=== PATIENT | female | born 1950 | race Caucasian/White ===

== ENCOUNTER 2020-08-27 11:24 | Inpatient (IN) ==
[2020-08-27] MEDS ORDERED: 0.9 % Sodium Chloride 1,000 ML IVC ONE (11:34)
[2020-08-27 12:10] LABS: Basophils % 0.2 %; Eosinophils % 0.1 %; Hematocrit 26.6 % (35.3-44.9); Hemoglobin 7.3 g/dL (11.5-15.4); Immature Granulocytes % 0.5 % (0-4); Lymphocytes # 0.4 K/mcL (0.6-4.6); Lymphocytes % 4.2 %; Mean Corpuscular HGB Conc 27.4 g/dL (31.6-35.5); Mean Corpuscular Hemoglobin 25.7 pg (28.0-33.3); Mean Corpuscular Volume 93.7 fL (83.0-100.0); Mean Platelet Volume 12.2 fL (9.4-12.4); Monocytes # 0.5 K/mcL (0.0-1.3); Monocytes % 4.8 %; Platelet Count 129 K/mcL (140-400); Red Blood Count 2.84 M/mcL (3.82-4.97); Red Cell Distribution Width 21.9 % (11.5-14.5); Segmented Neutrophils % 90.2 %; White Blood Count 9.7 K/mcL (4.3-11.1)
[2020-08-27 12:11] LABS: Neutrophils # 8.8 K/mcL (1.6-8.9)
[2020-08-27 12:12] LABS: Anisocytosis 1+ (Not Present); Hypochromasia Present (Not Present); Platelet Estimate Slight Decrease (Normal)
[2020-08-27 12:35] LABS: Calcium 8.8 mg/dL (8.6-10.3); Potassium 3.3 mEq/L (3.5-5.1); Troponin I 0.03 ng/mL (< 0.04)
[2020-08-27 12:48] LABS: Thyroid Stimulating Hormone 2.893 mcIU/mL (0.340-5.600)
[2020-08-27 12:49] LABS: Bacteria,Urine Few per hpf (None-Few); Bilirubin,Urine Negative (Negative); Blood,Urine Moderate (Negative); Clarity,Urine Clear (Clear); Color,Urine Yellow (Yellow); Glucose,Urine (UA) Normal (Normal); Hyaline Casts,Urine Few per lpf (None Seen); Ketones,Urine Negative (Negative); Leukocyte Esterase,Urine Moderate (Negative); Mucus,Urine Few per lpf (None-Few); Nitrite,Urine Negative (Negative); PH,Urine 5.5 pH Units (5.0-8.0); Protein,Urine 30 mg/dL (Neg-Trace); Specific Gravity,Urine 1.015 (1.010-1.025); Squamous Epithelial Cell,Urine Few per hpf (None-Few); Urobilinogen,Urine Normal (Normal); WBC,Urine 15-30 per hpf (0-3)
[2020-08-27] MEDS ORDERED: *HR* Metoprolol 5 MG/5 ML VIAL IVP ONE (13:01)
[2020-08-27] MEDS ORDERED: Furosemide 20 MG/2 ML VIAL IVP ONE ×2 (13:14→15:18)
[2020-08-27] MEDS ORDERED: Dextrose Gel 15 GM/37.5 ML TUBE PO PRN ×2 (14:53)
[2020-08-27] MEDS ORDERED: D5% in Water 1,000 ML IVC PRN (14:53)
[2020-08-27] MEDS ORDERED: *HR* Dextrose 50 % in Water (Vial) 50 ML VIAL IVP PRN (14:53)
[2020-08-27] MEDS ORDERED: Ondansetron 4 MG/2 ML VIAL IVP PRN (15:24)
[2020-08-27] MEDS ORDERED: Melatonin 3 MG TABLET PO PRN (15:24)
[2020-08-27] MEDS ORDERED: 0.9 % Sodium Chloride 250 ML ONE (15:45)
[2020-08-27] MEDS ORDERED: Furosemide 20 MG/2 ML VIAL IVP SCH (17:00)
[2020-08-27] MEDS: Budesonide/Formoterol 160/4.5 1 PUFF INH IH SCH (19:58)
[2020-08-27] MEDS: Apixaban 5 MG TABLET PO SCH (21:05)
[2020-08-27] MEDS: Gabapentin 100 MG CAPSULE PO SCH (21:05)
[2020-08-27] MEDS: Nystatin POWDER 30 GM BOTTLE TP SCH (21:06)
[2020-08-27] MEDS: Insulin DETEMIR 100 UNIT/ML X5UNITS SUBQ SCH (21:06)
[2020-08-27] MEDS: Furosemide 20 MG/2 ML VIAL IVP SCH (21:10)
[2020-08-27] MEDS ORDERED: *HR* LORazepam 0.5 MG TABLET PO ONE (23:54)
[2020-08-28] MEDS: Acetaminophen 325 MG TABLET PO PRN (00:06)
[2020-08-28 02:30] LABS: Red Cell Distribution Width 21.2 % (11.5-14.5)
[2020-08-28 02:31] LABS: Hematocrit 24.7 % (35.3-44.9); Mean Corpuscular HGB Conc 28.3 g/dL (31.6-35.5); Mean Corpuscular Hemoglobin 25.5 pg (28.0-33.3); Mean Corpuscular Volume 90.1 fL (83.0-100.0); Mean Platelet Volume 11.9 fL (9.4-12.4); Platelet Count 119 K/mcL (140-400); Red Blood Count 2.74 M/mcL (3.82-4.97)
[2020-08-28 02:58] LABS: Magnesium 1.9 mg/dL (1.6-2.6); Potassium 3.1 mEq/L (3.5-5.1)
[2020-08-28] MEDS ORDERED: Ferumoxytol 510 MG in 0.9 % Sodium Chloride 100 ML IVPB ONE (06:00)
[2020-08-28] MEDS: Budesonide/Formoterol 160/4.5 1 PUFF INH IH SCH ×2 (08:03→20:19)
[2020-08-28] MEDS ORDERED: 0.9 % Sodium Chloride 250 ML ONE (09:02)
[2020-08-28] MEDS: Furosemide 20 MG/2 ML VIAL IVP SCH ×2 (09:28→17:22)
[2020-08-28] MEDS: Gabapentin 100 MG CAPSULE PO SCH ×2 (09:28→20:50)
[2020-08-28] MEDS: Apixaban 5 MG TABLET PO SCH ×2 (09:28→20:50)
[2020-08-28 11:00] LABS: Acinetobacter baumannii by PCR Not Detected (Not Detect); Candida albicans by PCR Not Detected (Not Detect); Candida glabrata by PCR Not Detected (Not Detect); Candida krusei by PCR Not Detected (Not Detect); Candida parapsilosis by PCR Not Detected (Not Detect); Candida tropicalis by PCR Not Detected (Not Detect); Enterobacter cloacae Cmplx PCR Not Detected (Not Detect); Enterobacteriaceae by PCR Not Detected (Not Detect); Enterococcus by PCR Not Detected (Not Detect); Escherichia coli by PCR Not Detected (Not Detect); Klebsiella oxytoca by PCR Not Detected (Not Detect); Klebsiella pneumoniae by PCR Not Detected (Not Detect); Proteus by PCR Not Detected (Not Detect); Pseudomonas aeruginosa by PCR Not Detected (Not Detect); Serratia marcescens by PCR Not Detected (Not Detect); Staphylococcus aureus by PCR Not Detected (Not Detect); Staphylococcus by PCR Not Detected (Not Detect); Streptococcus agalactiae(B)PCR Not Detected (Not Detect); Streptococcus by PCR DETECTED (Not Detect); Streptococcus pneumoniae PCR Not Detected (Not Detect); Streptococcus pyogenes (A) PCR Not Detected (Not Detect)
[2020-08-28] MEDS ORDERED: Cyanocobalamin (B-12) 1,000 MCG/ML VIAL SQ ONE (11:22)
[2020-08-28] MEDS: Potassium Chloride Elixir 20 MEQ/15 ML UDC PO SCH ×2 (13:29→17:21)
[2020-08-28] MEDS: Nystatin POWDER 30 GM BOTTLE TP SCH ×2 (13:30→20:51)
[2020-08-28 15:33] LABS: Folate 20.8 ng/mL (3.0-16.0); Vitamin B12 > 1500 pg/mL (250-1100)
[2020-08-28 18:15] LABS: Hematocrit 32.5 % (35.3-44.9)
[2020-08-28 18:19] LABS: Hemoglobin 9.2 g/dL (11.5-15.4)
[2020-08-28] MEDS: Insulin DETEMIR 100 UNIT/ML X5UNITS SUBQ SCH (20:50)
[2020-08-29 05:42] LABS: Calcium 8.2 mg/dL (8.6-10.3); Potassium 3.5 mEq/L (3.5-5.1)
[2020-08-29 05:47] LABS: Basophils % 0.2 %; Eosinophils # 0.1 K/mcL (0.0-0.6); Hematocrit 28.6 % (35.3-44.9); Immature Granulocytes % 0.5 % (0-4); Immature Platelets 7.1 % (1.1-6.1); Lymphocytes # 0.6 K/mcL (0.6-4.6); Lymphocytes % 5.9 %; Mean Corpuscular Hemoglobin 25.6 pg (28.0-33.3); Mean Corpuscular Volume 91.4 fL (83.0-100.0); Mean Platelet Volume 12.4 fL (9.4-12.4); Monocytes # 0.6 K/mcL (0.0-1.3); Monocytes % 6.2 %; Neutrophils # 8.1 K/mcL (1.6-8.9); Platelet Count 114 K/mcL (140-400); Red Blood Count 3.13 M/mcL (3.82-4.97); Red Cell Distribution Width 20.4 % (11.5-14.5); Segmented Neutrophils % 86.2 %; White Blood Count 9.4 K/mcL (4.3-11.1)
[2020-08-29 05:55] LABS: Anisocytosis 1+ (Not Present); Hypochromasia Present (Not Present); Platelet Estimate Slight Decrease (Normal)
[2020-08-29] MEDS: Budesonide/Formoterol 160/4.5 1 PUFF INH IH SCH ×2 (07:51→20:28)
[2020-08-29] MEDS: Furosemide 20 MG/2 ML VIAL IVP SCH (08:41)
[2020-08-29] MEDS: Apixaban 5 MG TABLET PO SCH ×2 (08:42→20:58)
[2020-08-29] MEDS: Gabapentin 100 MG CAPSULE PO SCH ×2 (08:42→20:58)
[2020-08-29] MEDS: Nystatin POWDER 30 GM BOTTLE TP SCH ×2 (08:42→22:04)
[2020-08-29] MEDS: Piperacillin/Tazobactam 3.375 GM in 0.9 % Sodium Chloride Mini Bag 100 ML IVPB SCH (16:40)
[2020-08-29] MEDS: Acetaminophen 325 MG TABLET PO PRN (20:58)
[2020-08-29] MEDS: Insulin DETEMIR 100 UNIT/ML X5UNITS SUBQ SCH (20:59)
[2020-08-30] MEDS: Piperacillin/Tazobactam 3.375 GM in 0.9 % Sodium Chloride Mini Bag 100 ML IVPB SCH ×4 (00:10→23:04)
[2020-08-30] MEDS: Acetaminophen 325 MG TABLET PO PRN ×2 (03:52→23:03)
[2020-08-30] MEDS: Vancomycin 2,000 MG/520 ML IV.SOLN IVPB SCH (05:34)
[2020-08-30 06:47] LABS: Eosinophils % 1.2 %
[2020-08-30 06:49] LABS: Basophils % 0.3 %; Eosinophils # 0.1 K/mcL (0.0-0.6); Hematocrit 29.7 % (35.3-44.9); Hemoglobin 8.5 g/dL (11.5-15.4); Immature Granulocytes % 0.5 % (0-4); Lymphocytes # 0.4 K/mcL (0.6-4.6); Mean Corpuscular HGB Conc 28.6 g/dL (31.6-35.5); Mean Corpuscular Hemoglobin 25.8 pg (28.0-33.3); Mean Platelet Volume 12.1 fL (9.4-12.4); Monocytes # 0.4 K/mcL (0.0-1.3); Monocytes % 3.5 %; Platelet Count 120 K/mcL (140-400); Red Cell Distribution Width 20.1 % (11.5-14.5); Segmented Neutrophils % 91.5 %; White Blood Count 11.5 K/mcL (4.3-11.1)
[2020-08-30 06:50] LABS: Neutrophils # 10.5 K/mcL (1.6-8.9)
[2020-08-30 07:08] LABS: Calcium 8.3 mg/dL (8.6-10.3); Potassium 3.4 mEq/L (3.5-5.1)
[2020-08-30 07:36] LABS: Platelet Estimate Slight Decrease (Normal)
[2020-08-30] MEDS ORDERED: Potassium Chloride Elixir 20 MEQ/15 ML UDC PO ONE (07:46)
[2020-08-30] MEDS: Gabapentin 100 MG CAPSULE PO SCH ×2 (08:33→19:55)
[2020-08-30] MEDS: Apixaban 5 MG TABLET PO SCH ×2 (08:33→19:55)
[2020-08-30] MEDS: Nystatin POWDER 30 GM BOTTLE TP SCH ×2 (08:35→19:56)
[2020-08-30] MEDS ORDERED: Furosemide 20 MG/2 ML VIAL IVP SCH (09:00)
[2020-08-30] MEDS: Budesonide/Formoterol 160/4.5 1 PUFF INH IH SCH ×2 (12:29→20:20)
[2020-08-30 12:52] LABS: Adenovirus Not Detected (Not Detect); Bordetella Pertussis Not Detected (Not Detect); Chlamydophila pneumoniae Not Detected (Not Detect); Coronavirus 229E Not Detected (Not Detect); Coronavirus HKU1 Not Detected (Not Detect); Coronavirus NL63 Not Detected (Not Detect); Coronavirus OC43 Not Detected (Not Detect); Human Metapneumovirus Not Detected (Not Detect); Human Rhinovirus/Enterovirus Not Detected (Not Detect); Influenza A Subtype 2009 H1 Not Detected (Not Detect); Influenza B Not Detected (Not Detect); Mycoplasma pneumoniae Not Detected (Not Detect); Parainfluenza Virus 1 Not Detected (Not Detect); Parainfluenza Virus 2 Not Detected (Not Detect); Parainfluenza Virus 3 Not Detected (Not Detect); Parainfluenza Virus 4 Not Detected (Not Detect); Respiratory Syncytial Virus Not Detected (Not Detect); SARS-CoV-2 Not Detected (Not Detect)
[2020-08-30] MEDS: Cyanocobalamin (B-12) 1,000 MCG TABLET PO SCH (15:17)
[2020-08-30] MEDS: Insulin DETEMIR 100 UNIT/ML X5UNITS SUBQ SCH (20:08)
[2020-08-31 04:12] LABS: Immature Granulocytes % 0.7 % (0-4); Lymphocytes % 5.7 %; Red Blood Count 3.27 M/mcL (3.82-4.97); Red Cell Distribution Width 20.1 % (11.5-14.5)
[2020-08-31 04:13] LABS: Basophils % 0.4 %; Eosinophils # 0.4 K/mcL (0.0-0.6); Eosinophils % 4.1 %; Hematocrit 30.5 % (35.3-44.9); Hemoglobin 8.5 g/dL (11.5-15.4); Lymphocytes # 0.5 K/mcL (0.6-4.6); Mean Corpuscular HGB Conc 27.9 g/dL (31.6-35.5); Mean Corpuscular Volume 93.3 fL (83.0-100.0); Mean Platelet Volume 11.6 fL (9.4-12.4); Monocytes # 0.4 K/mcL (0.0-1.3); Monocytes % 4.9 %; Neutrophils # 7.2 K/mcL (1.6-8.9); Platelet Count 107 K/mcL (140-400); Segmented Neutrophils % 84.2 %; White Blood Count 8.6 K/mcL (4.3-11.1)
[2020-08-31 04:31] LABS: Calcium 8.2 mg/dL (8.6-10.3); Potassium 3.2 mEq/L (3.5-5.1)
[2020-08-31 04:41] LABS: Anisocytosis 1+ (Not Present); Hypochromasia Present (Not Present); Platelet Estimate Slight Decrease (Normal)
[2020-08-31] MEDS: Vancomycin 2,000 MG/520 ML IV.SOLN IVPB SCH (05:04)
[2020-08-31] MEDS: Budesonide/Formoterol 160/4.5 1 PUFF INH IH SCH ×2 (08:11→22:17)
[2020-08-31] MEDS: Piperacillin/Tazobactam 3.375 GM in 0.9 % Sodium Chloride Mini Bag 100 ML IVPB SCH ×3 (08:48→23:51)
[2020-08-31] MEDS: Cyanocobalamin (B-12) 1,000 MCG TABLET PO SCH (08:49)
[2020-08-31] MEDS: Gabapentin 100 MG CAPSULE PO SCH ×2 (08:49→20:57)
[2020-08-31] MEDS: Apixaban 5 MG TABLET PO SCH ×2 (08:49→20:57)
[2020-08-31] MEDS: Furosemide 20 MG/2 ML VIAL IVP SCH ×2 (08:50→17:20)
[2020-08-31] MEDS: Nystatin POWDER 30 GM BOTTLE TP SCH ×2 (08:51→20:59)
[2020-08-31] MEDS: Insulin DETEMIR 100 UNIT/ML X5UNITS SUBQ SCH (20:59)
[2020-09-01] MEDS: Acetaminophen 325 MG TABLET PO PRN ×2 (00:20→19:59)
[2020-09-01 04:42] LABS: Basophils % 0.3 %
[2020-09-01 04:43] LABS: Eosinophils # 0.5 K/mcL (0.0-0.6); Eosinophils % 5.1 %; Hematocrit 30.6 % (35.3-44.9); Hemoglobin 8.4 g/dL (11.5-15.4); Immature Granulocytes % 1.1 % (0-4); Lymphocytes # 0.6 K/mcL (0.6-4.6); Lymphocytes % 5.9 %; Mean Corpuscular HGB Conc 27.5 g/dL (31.6-35.5); Mean Corpuscular Hemoglobin 25.5 pg (28.0-33.3); Mean Platelet Volume 11.9 fL (9.4-12.4); Monocytes # 0.5 K/mcL (0.0-1.3); Monocytes % 5.1 %; Platelet Count 114 K/mcL (140-400); Red Blood Count 3.29 M/mcL (3.82-4.97); Segmented Neutrophils % 82.5 %; White Blood Count 9.5 K/mcL (4.3-11.1)
[2020-09-01 04:53] LABS: Potassium 3.9 mEq/L (3.5-5.1)
[2020-09-01 04:56] LABS: Neutrophils # 7.8 K/mcL (1.6-8.9)
[2020-09-01 05:09] LABS: Hypochromasia Present (Not Present); Macrocytosis Present (Not Present); Platelet Estimate Slight Decrease (Normal)
[2020-09-01] MEDS: Vancomycin 2,000 MG/520 ML IV.SOLN IVPB SCH (05:35)
[2020-09-01] MEDS: Budesonide/Formoterol 160/4.5 1 PUFF INH IH SCH ×2 (07:53→20:14)
[2020-09-01] MEDS: Furosemide 20 MG/2 ML VIAL IVP SCH ×2 (08:45→16:20)
[2020-09-01] MEDS: Gabapentin 100 MG CAPSULE PO SCH ×2 (08:45→19:59)
[2020-09-01] MEDS: Apixaban 5 MG TABLET PO SCH ×2 (08:45→19:59)
[2020-09-01] MEDS: Cyanocobalamin (B-12) 1,000 MCG TABLET PO SCH (08:45)
[2020-09-01] MEDS: Piperacillin/Tazobactam 3.375 GM in 0.9 % Sodium Chloride Mini Bag 100 ML IVPB SCH (08:46)
[2020-09-01] MEDS: Nystatin POWDER 30 GM BOTTLE TP SCH ×2 (08:46→20:02)
[2020-09-01] MEDS: cefTRIAXone 2,000 MG in 0.9 % Sodium Chloride Mini Bag 100 ML IVPB SCH (16:20)
[2020-09-01] MEDS: Insulin DETEMIR 100 UNIT/ML X5UNITS SUBQ SCH (20:00)
[2020-09-02 03:29] LABS: Basophils % 0.5 %; Immature Granulocytes % 0.8 % (0-4)
[2020-09-02 03:30] LABS: Eosinophils # 0.4 K/mcL (0.0-0.6); Eosinophils % 5.5 %; Hematocrit 31.6 % (35.3-44.9); Hemoglobin 8.7 g/dL (11.5-15.4); Lymphocytes # 0.6 K/mcL (0.6-4.6); Lymphocytes % 7.4 %; Mean Corpuscular HGB Conc 27.5 g/dL (31.6-35.5); Mean Corpuscular Volume 94.3 fL (83.0-100.0); Mean Platelet Volume 11.7 fL (9.4-12.4); Monocytes # 0.5 K/mcL (0.0-1.3); Monocytes % 5.9 %; Platelet Count 125 K/mcL (140-400); Red Blood Count 3.35 M/mcL (3.82-4.97); Red Cell Distribution Width 20.3 % (11.5-14.5); Segmented Neutrophils % 79.9 %; White Blood Count 7.8 K/mcL (4.3-11.1)
[2020-09-02 03:35] LABS: Neutrophils # 6.2 K/mcL (1.6-8.9)
[2020-09-02 03:42] LABS: Calcium 8.1 mg/dL (8.6-10.3); Potassium 3.8 mEq/L (3.5-5.1)
[2020-09-02 04:10] LABS: Anisocytosis 1+ (Not Present); Hypochromasia Present (Not Present); Platelet Estimate Slight Decrease (Normal)
[2020-09-02] MEDS: Budesonide/Formoterol 160/4.5 1 PUFF INH IH SCH ×2 (07:48→19:45)
[2020-09-02] MEDS: Gabapentin 100 MG CAPSULE PO SCH ×2 (10:02→19:55)
[2020-09-02] MEDS: Furosemide 20 MG/2 ML VIAL IVP SCH ×2 (10:02→16:36)
[2020-09-02] MEDS: Apixaban 5 MG TABLET PO SCH ×2 (10:02→19:54)
[2020-09-02] MEDS: Cyanocobalamin (B-12) 1,000 MCG TABLET PO SCH (10:02)
[2020-09-02] MEDS: Nystatin POWDER 30 GM BOTTLE TP SCH ×2 (10:03→19:55)
[2020-09-02] MEDS: cefTRIAXone 2,000 MG in 0.9 % Sodium Chloride Mini Bag 100 ML IVPB SCH (16:36)
[2020-09-02] MEDS: Insulin DETEMIR 100 UNIT/ML X5UNITS SUBQ SCH (19:55)
[2020-09-03 02:47] LABS: Basophils % 0.4 %; Red Blood Count 3.33 M/mcL (3.82-4.97)
[2020-09-03 02:48] LABS: Eosinophils # 0.5 K/mcL (0.0-0.6); Eosinophils % 6.5 %; Hematocrit 31.2 % (35.3-44.9); Hemoglobin 8.7 g/dL (11.5-15.4); Immature Granulocytes % 0.9 % (0-4); Lymphocytes # 0.5 K/mcL (0.6-4.6); Lymphocytes % 7.6 %; Mean Corpuscular HGB Conc 27.9 g/dL (31.6-35.5); Mean Corpuscular Hemoglobin 26.1 pg (28.0-33.3); Mean Corpuscular Volume 93.7 fL (83.0-100.0); Mean Platelet Volume 12.6 fL (9.4-12.4); Monocytes # 0.4 K/mcL (0.0-1.3); Monocytes % 5.6 %; Neutrophils # 5.5 K/mcL (1.6-8.9); Platelet Count 153 K/mcL (140-400); Red Cell Distribution Width 19.9 % (11.5-14.5)
[2020-09-03 03:05] LABS: Calcium 8.4 mg/dL (8.6-10.3); Potassium 3.7 mEq/L (3.5-5.1)
[2020-09-03 04:20] LABS: Hypochromasia Present (Not Present); Platelet Estimate Normal (Normal)
[2020-09-03] MEDS: Budesonide/Formoterol 160/4.5 1 PUFF INH IH SCH ×2 (07:33→22:08)
[2020-09-03] MEDS: Furosemide 20 MG/2 ML VIAL IVP SCH ×2 (08:09→16:06)
[2020-09-03] MEDS: Apixaban 5 MG TABLET PO SCH ×2 (08:10→19:49)
[2020-09-03] MEDS: Nystatin POWDER 30 GM BOTTLE TP SCH ×2 (08:10→22:45)
[2020-09-03] MEDS: Cyanocobalamin (B-12) 1,000 MCG TABLET PO SCH (08:10)
[2020-09-03] MEDS: Gabapentin 100 MG CAPSULE PO SCH ×2 (08:10→19:49)
[2020-09-03 15:14] LABS: ABG Base Excess 2 mEq/L (-2 to 3); ABG HCO3 28 mEq/L (21-27); ABG Oxygen Saturation 87 % (95-98); ABG PCO2 46 mmHg (35-45); ABG PH 7.39 pH Units (7.32-7.45); ABG PO2 53 mmHg (85-104); ABG TCO2 29 mEq/L (20-26)
[2020-09-03] MEDS: cefTRIAXone 2,000 MG in 0.9 % Sodium Chloride Mini Bag 100 ML IVPB SCH (16:04)
[2020-09-03] MEDS: Insulin DETEMIR 100 UNIT/ML X5UNITS SUBQ SCH (19:50)
[2020-09-04 06:33] LABS: Immature Granulocytes % 1.2 % (0-4); Red Blood Count 3.26 M/mcL (3.82-4.97); Segmented Neutrophils % 77.6 %
[2020-09-04 06:35] LABS: Basophils % 0.6 %; Eosinophils # 0.4 K/mcL (0.0-0.6); Eosinophils % 5.8 %; Hematocrit 30.9 % (35.3-44.9); Hemoglobin 8.5 g/dL (11.5-15.4); Lymphocytes # 0.6 K/mcL (0.6-4.6); Lymphocytes % 8.4 %; Mean Corpuscular HGB Conc 27.5 g/dL (31.6-35.5); Mean Corpuscular Hemoglobin 26.1 pg (28.0-33.3); Mean Corpuscular Volume 94.8 fL (83.0-100.0); Mean Platelet Volume 12.6 fL (9.4-12.4); Monocytes # 0.4 K/mcL (0.0-1.3); Monocytes % 6.4 %; Neutrophils # 5.1 K/mcL (1.6-8.9); Platelet Count 156 K/mcL (140-400); Red Cell Distribution Width 20.2 % (11.5-14.5); White Blood Count 6.6 K/mcL (4.3-11.1)
[2020-09-04 07:01] LABS: Hypochromasia Present (Not Present)
[2020-09-04 07:02] LABS: Anisocytosis 1+ (Not Present); Platelet Estimate Normal (Normal)
[2020-09-04] MEDS: Budesonide/Formoterol 160/4.5 1 PUFF INH IH SCH (07:29)
[2020-09-04 07:55] LABS: BUN/Creatinine Ratio 23 (6-26); Blood Urea Nitrogen 25 mg/dL (8-23); Calcium 8.7 mg/dL (8.6-10.3); Carbon Dioxide 25 mEq/L (23-29); Chloride 108 mEq/L (98-107); Glucose 116 mg/dL (70-105); Osmolality,Calculated 297 (280-300); Potassium 4.1 mEq/L (3.5-5.1); Sodium 141 mEq/L (136-145); eGFR For African Americans > 60 (> 60); eGFR For Non-African Americans 51 (> 60)
[2020-09-04] MEDS: Apixaban 5 MG TABLET PO SCH (09:22)
[2020-09-04] MEDS: Cyanocobalamin (B-12) 1,000 MCG TABLET PO SCH (09:22)
[2020-09-04] MEDS: Gabapentin 100 MG CAPSULE PO SCH (09:23)
[2020-09-04] MEDS: Furosemide 20 MG/2 ML VIAL IVP SCH (09:23)
[2020-09-04] MEDS: Nystatin POWDER 30 GM BOTTLE TP SCH (09:23)
[2020-09-04 12:20] VITALS: BP 113/61
== END 2020-09-04 17:40 | disposition home health service (06) | DRG 291 ==
LOC: 2ANU 11:24 → EMEROOARM 11:24 → 2ANU 14:21 → SUATTDRO 15:29
PROVIDERS: ADMIT Internal Medicine; ATTEND Student in an Organized Health Care Education/Training Program

== ENCOUNTER 2020-10-20 09:22 | Inpatient (IN) ==
[2020-10-20 10:18] LABS: Basophils % 0.1 %; Segmented Neutrophils % 91.8 %
[2020-10-20 10:20] LABS: Eosinophils % 0.1 %; Hematocrit 21.4 % (35.3-44.9); Immature Granulocytes % 0.5 % (0-4); Lymphocytes # 0.5 K/mcL (0.6-4.6); Lymphocytes % 4.1 %; Mean Corpuscular Hemoglobin 25.8 pg (28.0-33.3); Mean Corpuscular Volume 91.8 fL (83.0-100.0); Mean Platelet Volume 12.7 fL (9.4-12.4); Monocytes # 0.5 K/mcL (0.0-1.3); Monocytes % 3.4 %; Platelet Count 127 K/mcL (140-400); Red Blood Count 2.33 M/mcL (3.82-4.97); Red Cell Distribution Width 19.5 % (11.5-14.5); White Blood Count 13.1 K/mcL (4.3-11.1)
[2020-10-20 10:40] LABS: Albumin 2.9 g/dL (3.5-5.7); Albumin/Globulin Ratio 0.7 (1.1-2.2); Bilirubin,Total 1.2 mg/dL (0.3-1.0); Calcium 8.4 mg/dL (8.6-10.3); Potassium 3.8 mEq/L (3.5-5.1); Total Protein 6.9 g/dL (6.4-8.9); Troponin I 0.17 ng/mL (< 0.04)
[2020-10-20 10:41] LABS: Hypochromasia Present (Not Present)
[2020-10-20 11:42] LABS: Bacteria,Urine Few per hpf (None-Few); Bilirubin,Urine Negative (Negative); Blood,Urine Large (Negative); Clarity,Urine Turbid (Clear); Color,Urine Yellow (Yellow); Glucose,Urine (UA) Normal (Normal); Hyaline Casts,Urine Many per lpf (None Seen); Ketones,Urine Negative (Negative); Leukocyte Esterase,Urine Large (Negative); Mucus,Urine Few per lpf (None-Few); Nitrite,Urine Negative (Negative); Protein,Urine Trace mg/dL (Neg-Trace); RBC,Urine 15-30 per hpf (0-3); Specific Gravity,Urine 1.017 (1.010-1.025); Squamous Epithelial Cell,Urine Few per hpf (None-Few); WBC,Urine TNTC per hpf (0-3)
[2020-10-20 11:45] LABS: Amphetamine Screen,Urine Negative ng/mL (Cutoff=1000); Barbiturate Screen,Urine Negative ng/mL (Cutoff=200); Benzodiazepines Screen,Urine Negative ng/mL (Cutoff=200); Cannabinoid Screen,Urine Negative ng/mL (Cutoff = 50); Cocaine Screen,Urine Negative ng/mL (Cutoff= 300); Opiate Screen,Urine Negative ng/mL (Cutoff=300); Phencyclidine Screen,Urine Negative ng/mL (Cutoff=25)
[2020-10-20] MEDS ORDERED: cefTRIAXone 1,000 MG in Water for inj. (sterile) 10 ML IVP ONE (12:13)
[2020-10-20] MEDS ORDERED: 0.9 % Sodium Chloride 1,000 ML IVC STA (12:14)
[2020-10-20] MEDS ORDERED: Pantoprazole 40 MG VIAL IVP ONE (12:25)
[2020-10-20] MEDS ORDERED: 0.9 % Sodium Chloride 250 ML ONE ×2 (12:30→16:01)
[2020-10-20] MEDS ORDERED: D5% in Water 1,000 ML IVC PRN (13:21)
[2020-10-20] MEDS ORDERED: *HR* Dextrose 50 % in Water (Vial) 50 ML VIAL IVP PRN (13:21)
[2020-10-20] MEDS ORDERED: Naloxone 0.4 MG/ML INJ IVP PRN (13:21)
[2020-10-20] MEDS ORDERED: Dextrose Gel 15 GM/37.5 ML TUBE PO PRN ×2 (13:21)
[2020-10-20] MEDS ORDERED: Ondansetron 4 MG/2 ML VIAL IVP PRN (13:21)
[2020-10-20 16:02] LABS: ABG Base Excess 1 mEq/L (-2 to 3); ABG HCO3 26 mEq/L (21-27); ABG Oxygen Saturation 96 % (95-98); ABG PCO2 43 mmHg (35-45); ABG PH 7.39 pH Units (7.32-7.45); ABG PO2 84 mmHg (85-104); ABG TCO2 27 mEq/L (20-26)
[2020-10-20] MEDS: Insulin LISPRO 300 UNITS/3 ML VIAL SUBQ SCH (16:34)
[2020-10-20] MEDS: Pantoprazole 40 MG VIAL IVP SCH (16:34)
[2020-10-20 18:37] LABS: Hematocrit 24.2 % (35.3-44.9); Hemoglobin 7.1 g/dL (11.5-15.4)
[2020-10-20] MEDS: Insulin DETEMIR 100 UNIT/ML X5UNITS SUBQ SCH (19:54)
[2020-10-20 22:58] LABS: Acinetobacter baumannii by PCR Not Detected (Not Detect); Candida albicans by PCR Not Detected (Not Detect); Candida glabrata by PCR Not Detected (Not Detect); Candida krusei by PCR Not Detected (Not Detect); Candida parapsilosis by PCR Not Detected (Not Detect); Candida tropicalis by PCR Not Detected (Not Detect); Enterobacter cloacae Cmplx PCR Not Detected (Not Detect); Enterobacteriaceae by PCR Not Detected (Not Detect); Enterococcus by PCR Not Detected (Not Detect); Escherichia coli by PCR Not Detected (Not Detect); Klebsiella oxytoca by PCR Not Detected (Not Detect); Klebsiella pneumoniae by PCR Not Detected (Not Detect); Proteus by PCR Not Detected (Not Detect); Pseudomonas aeruginosa by PCR Not Detected (Not Detect); Serratia marcescens by PCR Not Detected (Not Detect); Staphylococcus aureus by PCR Not Detected (Not Detect); Staphylococcus by PCR Not Detected (Not Detect); Streptococcus agalactiae(B)PCR Not Detected (Not Detect); Streptococcus by PCR Not Detected (Not Detect); Streptococcus pneumoniae PCR Not Detected (Not Detect); Streptococcus pyogenes (A) PCR Not Detected (Not Detect)
[2020-10-21 00:59] LABS: Basophils % 0.2 %; Eosinophils # 0.1 K/mcL (0.0-0.6); Eosinophils % 0.6 %; Hematocrit 23.8 % (35.3-44.9); Immature Granulocytes % 0.6 % (0-4); Lymphocytes # 0.5 K/mcL (0.6-4.6); Lymphocytes % 3.8 %; Mean Corpuscular HGB Conc 29.4 g/dL (31.6-35.5); Mean Corpuscular Hemoglobin 26.6 pg (28.0-33.3); Mean Corpuscular Volume 90.5 fL (83.0-100.0); Mean Platelet Volume 11.8 fL (9.4-12.4); Monocytes # 0.6 K/mcL (0.0-1.3); Monocytes % 4.6 %; Neutrophils # 12.4 K/mcL (1.6-8.9); Platelet Count 128 K/mcL (140-400); Red Blood Count 2.63 M/mcL (3.82-4.97); Red Cell Distribution Width 18.3 % (11.5-14.5); Segmented Neutrophils % 90.2 %; White Blood Count 13.8 K/mcL (4.3-11.1)
[2020-10-21 01:20] LABS: Calcium 8.4 mg/dL (8.6-10.3); Potassium 3.5 mEq/L (3.5-5.1)
[2020-10-21 01:29] LABS: Troponin I 0.22 ng/mL (< 0.04)
[2020-10-21] MEDS: Pantoprazole 40 MG VIAL IVP SCH ×2 (05:09→18:09)
[2020-10-21] MEDS: Insulin LISPRO 300 UNITS/3 ML VIAL SUBQ SCH ×3 (07:29→18:10)
[2020-10-21] MEDS ORDERED: 0.9 % Sodium Chloride 250 ML ONE (08:53)
[2020-10-21] MEDS ORDERED: cefTRIAXone 1,000 MG in Water for inj. (sterile) 10 ML IVP SCH (09:00)
[2020-10-21] MEDS: Acetaminophen 325 MG TABLET PO PRN (09:30)
[2020-10-21] MEDS ORDERED: cefTRIAXone 1,000 MG in Water for inj. (sterile) 10 ML IVP ONE (11:42)
[2020-10-21 13:10] LABS: Hemoglobin 7.5 g/dL (11.5-15.4)
[2020-10-21] MEDS: Insulin DETEMIR 100 UNIT/ML X5UNITS SUBQ SCH (20:25)
[2020-10-22 02:14] LABS: Hematocrit 26.2 % (35.3-44.9); Hemoglobin 7.6 g/dL (11.5-15.4); Mean Corpuscular Hemoglobin 26.4 pg (28.0-33.3); Mean Platelet Volume 12.2 fL (9.4-12.4); Platelet Count 137 K/mcL (140-400); Red Blood Count 2.88 M/mcL (3.82-4.97); Red Cell Distribution Width 18.3 % (11.5-14.5); White Blood Count 9.5 K/mcL (4.3-11.1)
[2020-10-22 02:39] LABS: Calcium 8.5 mg/dL (8.6-10.3); Magnesium 2.4 mg/dL (1.6-2.6); Potassium 3.5 mEq/L (3.5-5.1)
[2020-10-22] MEDS: Pantoprazole 40 MG VIAL IVP SCH ×2 (05:37→16:27)
[2020-10-22] MEDS: Insulin LISPRO 300 UNITS/3 ML VIAL SUBQ SCH ×3 (08:28→16:27)
[2020-10-22] MEDS: cefTRIAXone 2,000 MG in Water for inj. (sterile) 20 ML IVP SCH (08:29)
[2020-10-22] MEDS ORDERED: Furosemide 40 MG TABLET PO SCH (12:00)
[2020-10-22] MEDS: Furosemide 40 MG TABLET PO SCH ×2 (13:40→21:32)
[2020-10-22] MEDS: Acetaminophen 325 MG TABLET PO PRN ×2 (16:26→23:46)
[2020-10-22] MEDS ORDERED: Prochlorperazine 10 MG/2 ML VIAL IVP PRN (18:23)
[2020-10-22] MEDS ORDERED: Ondansetron 4 MG/2 ML VIAL IVP PRN (18:24)
[2020-10-22] MEDS: Insulin DETEMIR 100 UNIT/ML X5UNITS SUBQ SCH (21:32)
[2020-10-23 03:18] LABS: Red Cell Distribution Width 18.3 % (11.5-14.5)
[2020-10-23 03:20] LABS: Hematocrit 26.7 % (35.3-44.9); Hemoglobin 7.7 g/dL (11.5-15.4); Mean Corpuscular HGB Conc 28.8 g/dL (31.6-35.5); Mean Corpuscular Hemoglobin 26.7 pg (28.0-33.3); Mean Corpuscular Volume 92.7 fL (83.0-100.0); Platelet Count 135 K/mcL (140-400); Red Blood Count 2.88 M/mcL (3.82-4.97); White Blood Count 7.9 K/mcL (4.3-11.1)
[2020-10-23 03:37] LABS: Calcium 8.5 mg/dL (8.6-10.3); Potassium 3.5 mEq/L (3.5-5.1)
[2020-10-23] MEDS: Pantoprazole 40 MG VIAL IVP SCH ×2 (07:58→17:25)
[2020-10-23] MEDS: Insulin LISPRO 300 UNITS/3 ML VIAL SUBQ SCH ×3 (07:59→16:18)
[2020-10-23] MEDS: cefTRIAXone 2,000 MG in Water for inj. (sterile) 20 ML IVP SCH (07:59)
[2020-10-23] MEDS: Furosemide 40 MG TABLET PO SCH ×2 (08:00→17:25)
[2020-10-23] MEDS: Insulin DETEMIR 100 UNIT/ML X5UNITS SUBQ SCH (20:06)
[2020-10-23] MEDS: Acetaminophen 325 MG TABLET PO PRN (20:09)
[2020-10-24 02:34] LABS: Hematocrit 26.7 % (35.3-44.9); Hemoglobin 7.3 g/dL (11.5-15.4)
[2020-10-24 02:57] LABS: Calcium 8.5 mg/dL (8.6-10.3); Potassium 3.6 mEq/L (3.5-5.1)
[2020-10-24] MEDS: Pantoprazole 40 MG VIAL IVP SCH (05:05)
[2020-10-24] MEDS ORDERED: *HR* Propofol 200 MG/20 ML VIAL IVP ONE ×2 (08:02→08:55)
[2020-10-24] MEDS ORDERED: Lidocaine -MPF 2% 5 ML VIAL ONE (08:03)
[2020-10-24] MEDS ORDERED: Lidocaine -MPF 4% 5 ML AMPUL ONE (08:03)
[2020-10-24 08:15] VITALS: BP 138/76
[2020-10-24] MEDS ORDERED: Cefdinir 300 MG CAPSULE PO SCH (09:00)
[2020-10-24] MEDS: Furosemide 40 MG TABLET PO SCH (10:13)
[2020-10-24] MEDS: Insulin LISPRO 300 UNITS/3 ML VIAL SUBQ SCH ×2 (11:09→11:14)
== END 2020-10-24 15:21 | disposition home health service (06) | DRG 871 ==
LOC: EMEROOARM 09:22 → 2ANU 09:22 → SUATTDRO 12:51 → 2ANU 12:52
PROVIDERS: ADMIT Internal Medicine; ATTEND Internal Medicine

== ENCOUNTER 2020-11-30 15:48 | Inpatient (IN) ==
[2020-11-30] MEDS ORDERED: Vancomycin 2,000 MG/520 ML IV.SOLN IVPB ONE (16:30)
[2020-11-30] MEDS ORDERED: Clindamycin 600 MG/50 ML 600 MG/50 ML IV.SOLN IVPB ONE (16:30)
[2020-11-30] MEDS ORDERED: Piperacillin/Tazobactam 3.375 GM in 0.9 % Sodium Chloride Mini Bag 100 ML IVPB ONE (16:30)
[2020-11-30] MEDS: 0.9 % Sodium Chloride 1,000 ML IVC SCH ×4 (16:49→20:44)
[2020-11-30 16:52] LABS: Bilirubin,Urine Negative (Negative); Blood,Urine Small (Negative); Clarity,Urine Ex.Turbid (Clear); Color,Urine Yellow (Yellow); Glucose,Urine (UA) Normal (Normal); Ketones,Urine Negative (Negative); Leukocyte Esterase,Urine Large (Negative); Nitrite,Urine Negative (Negative); PH,Urine 5.5 pH Units (5.0-8.0); Protein,Urine Trace mg/dL (Neg-Trace); Specific Gravity,Urine 1.017 (1.010-1.025)
[2020-11-30 17:03] LABS: Bacteria,Urine Many per hpf (None-Few); WBC,Urine TNTC per hpf (0-3)
[2020-11-30 17:04] LABS: RBC,Urine Present per hpf (0-3); Squamous Epithelial Cell,Urine Present per hpf (None-Few)
[2020-11-30 18:20] LABS: Basophils % 0.3 %; Red Blood Count 3.26 M/mcL (3.82-4.97)
[2020-11-30 18:22] LABS: Eosinophils # 0.2 K/mcL (0.0-0.6); Eosinophils % 1.4 %; Hemoglobin 7.8 g/dL (11.5-15.4); Immature Granulocytes % 0.9 % (0-4); Lymphocytes # 0.7 K/mcL (0.6-4.6); Mean Corpuscular HGB Conc 28.9 g/dL (31.6-35.5); Mean Corpuscular Hemoglobin 23.9 pg (28.0-33.3); Mean Corpuscular Volume 82.8 fL (83.0-100.0); Mean Platelet Volume 10.9 fL (9.4-12.4); Monocytes # 0.6 K/mcL (0.0-1.3); Monocytes % 4.5 %; Neutrophils # 12.2 K/mcL (1.6-8.9); Platelet Count 190 K/mcL (140-400); Red Cell Distribution Width 17.2 % (11.5-14.5); Segmented Neutrophils % 87.9 %; White Blood Count 13.9 K/mcL (4.3-11.1)
[2020-11-30 18:28] LABS: INR 1.6; Prothrombin Time 18.1 Seconds (9.4-12.1)
[2020-11-30 18:30] LABS: Activated Partial Thrombo Time 31.5 Seconds (26.0-36.0)
[2020-11-30 18:42] LABS: Anisocytosis 1+ (Not Present); Large Platelets Present (Not Present); Microcytosis Present (Not Present); Platelet Estimate Normal (Normal)
[2020-11-30 18:47] LABS: Alanine Aminotransferase 10 Units/L (7-52); Albumin 2.5 g/dL (3.5-5.7); Albumin/Globulin Ratio 0.5 (1.1-2.2); Alkaline Phosphatase 100 Units/L (34-104); Aspartate Amino Transferase 14 Units/L (13-39); BUN/Creatinine Ratio 26 (6-26); Bilirubin,Direct 0.3 mg/dL (0.0-0.2); Bilirubin,Indirect 0.5 mg/dL (0.0-1.0); Bilirubin,Total 0.8 mg/dL (0.3-1.0); Blood Urea Nitrogen 32 mg/dL (8-23); Calcium 8.3 mg/dL (8.6-10.3); Carbon Dioxide 24 mEq/L (23-29); Chloride 106 mEq/L (98-107); Globulin 4.8 g/dL (2.4-3.5); Glucose 168 mg/dL (70-105); Osmolality,Calculated 297 (280-300); Phosphorous 3.3 mg/dL (2.7-4.5); Sodium 138 mEq/L (136-145); Total Protein 7.3 g/dL (6.4-8.9); Troponin I < 0.03 ng/mL (< 0.04); eGFR For African Americans 51 (> 60); eGFR For Non-African Americans 42 (> 60)
[2020-11-30] MEDS ORDERED: 0.9 % Sodium Chloride 1,000 ML IVC ONE (22:43)
[2020-11-30] MEDS ORDERED: Melatonin 3 MG TABLET PO PRN (22:44)
[2020-11-30] MEDS ORDERED: Ondansetron 4 MG/2 ML VIAL IVP PRN (22:44)
[2020-11-30] MEDS ORDERED: Naloxone 0.4 MG/ML INJ IVP PRN (22:44)
[2020-12-01 00:25] LABS: Chol/HDL Ratio 3.1 (0-4.9)
[2020-12-01] MEDS ORDERED: *HR* Metoprolol 5 MG/5 ML VIAL IVP PRN (00:28)
[2020-12-01] MEDS ORDERED: *HR* Dextrose 50 % in Water (Vial) 50 ML VIAL IVP PRN (00:32)
[2020-12-01] MEDS ORDERED: Dextrose Gel 15 GM/37.5 ML TUBE PO PRN ×2 (00:32)
[2020-12-01] MEDS ORDERED: D5% in Water 1,000 ML IVC PRN (00:32)
[2020-12-01] MEDS ORDERED: Perflutren Lipid Microsphere 1.3 ML in 0.9 % Sodium Chloride 8.7 ML IVP PRN ×2 (00:53→08:55)
[2020-12-01] MEDS ORDERED: Furosemide 20 MG/2 ML VIAL IVP ONE (00:55)
[2020-12-01] MEDS ORDERED: Albumin 25% 25gram/100mL 25 GM/100 ML IV.SOLN IVPB ONE (01:15)
[2020-12-01] MEDS: Piperacillin/Tazobactam 3.375 GM in 0.9 % Sodium Chloride Mini Bag 100 ML IVPB SCH ×3 (01:26→17:18)
[2020-12-01 01:29] LABS: Influenza A PCR Negative (Negative); Influenza B PCR Negative (Negative); Resp. Syncytial Virus PCR Negative (Negative)
[2020-12-01 01:36] LABS: SARS-CoV-2 by PCR (In House) Negative (Negative)
[2020-12-01] MEDS ORDERED: Acetaminophen 325 MG TABLET PO PRN (02:04)
[2020-12-01 02:37] LABS: Folate 12.3 ng/mL (3.0-16.0)
[2020-12-01 02:42] LABS: Estimated Average Glucose 123 mg/dl; Hemoglobin A1C 5.9 %
[2020-12-01 02:44] LABS: Basophils % 0.2 %; Eosinophils # 0.2 K/mcL (0.0-0.6); Eosinophils % 1.5 %; Hematocrit 26.5 % (35.3-44.9); Hemoglobin 7.6 g/dL (11.5-15.4); Immature Granulocytes % 0.5 % (0-4); Lymphocytes # 0.5 K/mcL (0.6-4.6); Lymphocytes % 3.4 %; Mean Corpuscular HGB Conc 28.7 g/dL (31.6-35.5); Mean Corpuscular Hemoglobin 24.1 pg (28.0-33.3); Mean Corpuscular Volume 84.1 fL (83.0-100.0); Mean Platelet Volume 11.3 fL (9.4-12.4); Monocytes # 0.5 K/mcL (0.0-1.3); Monocytes % 3.4 %; Neutrophils # 12.4 K/mcL (1.6-8.9); Platelet Count 169 K/mcL (140-400); Red Blood Count 3.15 M/mcL (3.82-4.97); Red Cell Distribution Width 17.5 % (11.5-14.5); White Blood Count 13.6 K/mcL (4.3-11.1)
[2020-12-01 03:00] LABS: Anisocytosis 1+ (Not Present); Hypochromasia Present (Not Present); Large Platelets Present (Not Present)
[2020-12-01 03:01] LABS: Platelet Estimate Normal (Normal)
[2020-12-01] MEDS: 0.9 % Sodium Chloride 1,000 ML IVC SCH ×2 (03:06→14:14)
[2020-12-01 03:27] LABS: BUN/Creatinine Ratio 25 (6-26); Blood Urea Nitrogen 29 mg/dL (8-23); Calcium 8.1 mg/dL (8.6-10.3); Carbon Dioxide 21 mEq/L (23-29); Chloride 109 mEq/L (98-107); Glucose 148 mg/dL (70-105); Iron < 10 mcg/dL (50-170); Osmolality,Calculated 299 (280-300); Sodium 140 mEq/L (136-145); Transferrin 140 mg/dL (203-362); eGFR For African Americans 55 (> 60); eGFR For Non-African Americans 46 (> 60)
[2020-12-01 03:32] LABS: Thyroid Stimulating Hormone 4.915 mcIU/mL (0.340-5.600)
[2020-12-01 03:41] LABS: Ferritin 105 ng/mL (10-120)
[2020-12-01] MEDS ORDERED: Vancomycin 1,250 MG/262.5 ML IV.SOLN IVPB SCH (05:00)
[2020-12-01] MEDS: *HR* Heparin 5,000 UNIT/ML VIAL SQ SCH ×2 (06:04→17:17)
[2020-12-01] MEDS ORDERED: *HR* HYDROmorphone PF 0.5 MG/0.5 ML SYRINGE IVP PRN (07:02)
[2020-12-01] MEDS ORDERED: Ipratropium Neb 0.5 MG NEBULIZER IH PRN (07:02)
[2020-12-01] MEDS ORDERED: Ondansetron 4 MG/2 ML VIAL IVP PRN (07:02)
[2020-12-01] MEDS ORDERED: Albuterol 2.5 MG/3 ML NEBULIZER IH PRN (07:02)
[2020-12-01] MEDS: Insulin LISPRO 300 UNITS/3 ML VIAL SUBQ SCH ×4 (08:44→21:33)
[2020-12-01] MEDS ORDERED: 0.9 % Sodium Chloride 250 ML IVC SCH (13:15)
[2020-12-01] MEDS ORDERED: Furosemide 40 MG/4 ML VIAL IVP ONE (15:00)
[2020-12-01] MEDS ORDERED: Furosemide 40 MG/4 ML VIAL ONE (20:30)
[2020-12-02] MEDS: Piperacillin/Tazobactam 3.375 GM in 0.9 % Sodium Chloride Mini Bag 100 ML IVPB SCH ×3 (02:45→17:59)
[2020-12-02] MEDS ORDERED: Acetaminophen IV 500 MG/50 ML BAG IVPB ONE (04:11)
[2020-12-02 04:29] LABS: Monocytes % 4.4 %; Red Cell Distribution Width 17.2 % (11.5-14.5)
[2020-12-02 04:32] LABS: Basophils % 0.4 %; Eosinophils # 0.3 K/mcL (0.0-0.6); Eosinophils % 2.6 %; Hematocrit 27.6 % (35.3-44.9); Hemoglobin 7.7 g/dL (11.5-15.4); Immature Granulocytes % 0.6 % (0-4); Lymphocytes # 0.6 K/mcL (0.6-4.6); Lymphocytes % 5.2 %; Mean Corpuscular HGB Conc 27.9 g/dL (31.6-35.5); Mean Corpuscular Hemoglobin 23.6 pg (28.0-33.3); Mean Corpuscular Volume 84.7 fL (83.0-100.0); Mean Platelet Volume 10.8 fL (9.4-12.4); Monocytes # 0.5 K/mcL (0.0-1.3); Neutrophils # 9.9 K/mcL (1.6-8.9); Platelet Count 166 K/mcL (140-400); Red Blood Count 3.26 M/mcL (3.82-4.97); Segmented Neutrophils % 86.8 %; White Blood Count 11.4 K/mcL (4.3-11.1)
[2020-12-02 04:51] LABS: BUN/Creatinine Ratio 25 (6-26); Blood Urea Nitrogen 27 mg/dL (8-23); Calcium 8.1 mg/dL (8.6-10.3); Carbon Dioxide 20 mEq/L (23-29); Chloride 112 mEq/L (98-107); Glucose 156 mg/dL (70-105); Osmolality,Calculated 300 (280-300); Potassium 3.8 mEq/L (3.5-5.1); Sodium 141 mEq/L (136-145); eGFR For African Americans > 60 (> 60); eGFR For Non-African Americans 50 (> 60)
[2020-12-02 04:56] LABS: Acinetobacter baumannii by PCR Not Detected (Not Detect); Candida albicans by PCR Not Detected (Not Detect); Candida glabrata by PCR Not Detected (Not Detect); Candida krusei by PCR Not Detected (Not Detect); Candida parapsilosis by PCR Not Detected (Not Detect); Candida tropicalis by PCR Not Detected (Not Detect); Enterobacter cloacae Cmplx PCR Not Detected (Not Detect); Enterobacteriaceae by PCR Not Detected (Not Detect); Enterococcus by PCR Not Detected (Not Detect); Escherichia coli by PCR Not Detected (Not Detect); Klebsiella oxytoca by PCR Not Detected (Not Detect); Klebsiella pneumoniae by PCR Not Detected (Not Detect); Proteus by PCR Not Detected (Not Detect); Pseudomonas aeruginosa by PCR Not Detected (Not Detect); Serratia marcescens by PCR Not Detected (Not Detect); Staphylococcus aureus by PCR Not Detected (Not Detect); Staphylococcus by PCR Not Detected (Not Detect); Streptococcus agalactiae(B)PCR Not Detected (Not Detect); Streptococcus by PCR Not Detected (Not Detect); Streptococcus pneumoniae PCR Not Detected (Not Detect); Streptococcus pyogenes (A) PCR Not Detected (Not Detect); mecA Methicillin-Resist Gene Not Detected (Not Detect); vanA/B Vancomycin-Resist Genes Not Detected (Not Detect)
[2020-12-02 05:06] LABS: Basophils # 0.1 K/mcL (0.0-0.2)
[2020-12-02] MEDS: *HR* Heparin 5,000 UNIT/ML VIAL SQ SCH ×2 (06:29→17:58)
[2020-12-02] MEDS: Vancomycin 1,250 MG/262.5 ML IV.SOLN IVPB SCH (06:32)
[2020-12-02 06:40] LABS: Anisocytosis 1+ (Not Present); Hypochromasia Present (Not Present); Large Platelets Present (Not Present); Platelet Estimate Normal (Normal)
[2020-12-02] MEDS: Ringers Solution, Lactated 1,000 ML IVC SCH (07:53)
[2020-12-02] MEDS ORDERED: Ferumoxytol 510 MG in 0.9 % Sodium Chloride 100 ML IVPB ONE (08:28)
[2020-12-02] MEDS: Insulin LISPRO 300 UNITS/3 ML VIAL SUBQ SCH ×4 (10:32→22:07)
[2020-12-02] MEDS: Furosemide 40 MG/4 ML VIAL IVP SCH (10:40)
[2020-12-02] MEDS ORDERED: Acetaminophen 325 MG TABLET PO PRN (17:30)
[2020-12-02] MEDS: Morphine Sulfate Oral CONC 10 MG/0.5 ML ORAL.SYG SL PRN ×2 (17:57→22:14)
[2020-12-02] MEDS: *HR* Metoprolol 5 MG/5 ML VIAL IVP SCH (17:58)
[2020-12-02] MEDS: *HR* FentaNYL (PF) 100 MCG/2 ML VIAL IVP PRN (19:48)
[2020-12-03] MEDS: *HR* Metoprolol 5 MG/5 ML VIAL IVP SCH ×3 (00:49→19:02)
[2020-12-03 01:35] LABS: Basophils % 0.3 %; Eosinophils # 0.3 K/mcL (0.0-0.6); Eosinophils % 2.4 %; Hematocrit 27.7 % (35.3-44.9); Lymphocytes # 0.6 K/mcL (0.6-4.6); Lymphocytes % 5.4 %; Mean Corpuscular HGB Conc 28.9 g/dL (31.6-35.5); Mean Corpuscular Hemoglobin 24.4 pg (28.0-33.3); Mean Corpuscular Volume 84.5 fL (83.0-100.0); Mean Platelet Volume 10.6 fL (9.4-12.4); Monocytes # 0.5 K/mcL (0.0-1.3); Monocytes % 4.5 %; Neutrophils # 9.9 K/mcL (1.6-8.9); Platelet Count 166 K/mcL (140-400); Red Blood Count 3.28 M/mcL (3.82-4.97); Red Cell Distribution Width 17.2 % (11.5-14.5); Segmented Neutrophils % 86.4 %; White Blood Count 11.4 K/mcL (4.3-11.1)
[2020-12-03 01:52] LABS: BUN/Creatinine Ratio 24 (6-26); Blood Urea Nitrogen 26 mg/dL (8-23); Calcium 8.1 mg/dL (8.6-10.3); Carbon Dioxide 22 mEq/L (23-29); Chloride 111 mEq/L (98-107); Glucose 126 mg/dL (70-105); Osmolality,Calculated 298 (280-300); Potassium 3.6 mEq/L (3.5-5.1); Sodium 141 mEq/L (136-145); eGFR For African Americans > 60 (> 60); eGFR For Non-African Americans 50 (> 60)
[2020-12-03 02:25] LABS: Anisocytosis 1+ (Not Present); Hypochromasia Present (Not Present); Large Platelets Present (Not Present); Platelet Estimate Normal (Normal)
[2020-12-03] MEDS: *HR* FentaNYL (PF) 100 MCG/2 ML VIAL IVP PRN (02:43)
[2020-12-03] MEDS: Piperacillin/Tazobactam 3.375 GM in 0.9 % Sodium Chloride Mini Bag 100 ML IVPB SCH ×3 (02:44→18:08)
[2020-12-03] MEDS: Morphine Sulfate Oral CONC 10 MG/0.5 ML ORAL.SYG SL PRN ×2 (06:10→20:08)
[2020-12-03] MEDS: *HR* Heparin 5,000 UNIT/ML VIAL SQ SCH ×2 (06:42→18:08)
[2020-12-03] MEDS: Vancomycin 1,250 MG/262.5 ML IV.SOLN IVPB SCH (06:45)
[2020-12-03] MEDS: Insulin LISPRO 300 UNITS/3 ML VIAL SUBQ SCH ×4 (07:45→21:50)
[2020-12-03] MEDS: Furosemide 40 MG/4 ML VIAL IVP SCH (07:49)
[2020-12-03 08:45] LABS: Sodium, Urine 32.6 mEq/L
[2020-12-03] MEDS ORDERED: Pantoprazole 40 MG VIAL IVP SCH (09:00)
[2020-12-03] MEDS ORDERED: Hyoscyamine SL 0.125 MG TAB.SUBL SL PRN (14:49)
[2020-12-03] MEDS ORDERED: *HR* LORazepam 0.5 MG TABLET PO PRN (14:49)
[2020-12-03] MEDS ORDERED: haloperidoL 1 MG TABLET PO PRN (15:35)
[2020-12-03] MEDS: Calcium Gluconate 1gm/50mL 1 GM/50 ML BAG IVPB SCH ×2 (18:01→19:01)
[2020-12-03] MEDS ORDERED: Piperacillin/Tazobactam 3.375 GM VIAL ONE (18:07)
[2020-12-03] MEDS: Lactobacillus 1 EACH CAP.SPRINK PO SCH (20:04)
[2020-12-04] MEDS: Piperacillin/Tazobactam 3.375 GM in 0.9 % Sodium Chloride Mini Bag 100 ML IVPB SCH ×3 (02:24→18:28)
[2020-12-04] MEDS: *HR* Heparin 5,000 UNIT/ML VIAL SQ SCH ×2 (05:57→18:28)
[2020-12-04] MEDS: Lactobacillus 1 EACH CAP.SPRINK PO SCH ×2 (07:42→22:01)
[2020-12-04 07:52] LABS: Immature Granulocytes % 1.8 % (0-4); Red Cell Distribution Width 17.5 % (11.5-14.5)
[2020-12-04 07:54] LABS: Basophils % 0.3 %; Eosinophils # 0.4 K/mcL (0.0-0.6); Eosinophils % 3.3 %; Hematocrit 28.6 % (35.3-44.9); Hemoglobin 8.1 g/dL (11.5-15.4); Lymphocytes # 0.8 K/mcL (0.6-4.6); Lymphocytes % 6.3 %; Mean Corpuscular HGB Conc 28.3 g/dL (31.6-35.5); Mean Corpuscular Hemoglobin 24.2 pg (28.0-33.3); Mean Corpuscular Volume 85.4 fL (83.0-100.0); Mean Platelet Volume 11.3 fL (9.4-12.4); Monocytes # 0.5 K/mcL (0.0-1.3); Monocytes % 3.7 %; Neutrophils # 11.1 K/mcL (1.6-8.9); Platelet Count 189 K/mcL (140-400); Red Blood Count 3.35 M/mcL (3.82-4.97); Segmented Neutrophils % 84.6 %; White Blood Count 13.1 K/mcL (4.3-11.1)
[2020-12-04 08:11] LABS: Magnesium 1.9 mg/dL (1.6-2.6); Phosphorous 3.7 mg/dL (2.7-4.5)
[2020-12-04 08:12] LABS: Albumin 2.3 g/dL (3.5-5.7); Albumin/Globulin Ratio 0.5 (1.1-2.2); Bilirubin,Total 0.6 mg/dL (0.3-1.0); Globulin 4.5 g/dL (2.4-3.5); Potassium 3.6 mEq/L (3.5-5.1); Total Protein 6.8 g/dL (6.4-8.9)
[2020-12-04 08:23] LABS: Anisocytosis 1+ (Not Present); Hypochromasia Present (Not Present)
[2020-12-04] MEDS: Insulin LISPRO 300 UNITS/3 ML VIAL SUBQ SCH ×4 (08:23→22:04)
[2020-12-04 08:24] LABS: Platelet Estimate Normal (Normal)
[2020-12-04] MEDS: Calcium Gluconate 1gm/50mL 1 GM/50 ML BAG IVPB SCH ×2 (08:49→09:53)
[2020-12-04] MEDS: Sennosides/Docusate Sodium TABLET PO SCH (22:01)
[2020-12-05] MEDS: Piperacillin/Tazobactam 3.375 GM in 0.9 % Sodium Chloride Mini Bag 100 ML IVPB SCH ×2 (03:24→09:45)
[2020-12-05] MEDS: *HR* Heparin 5,000 UNIT/ML VIAL SQ SCH (06:03)
[2020-12-05] MEDS: Insulin LISPRO 300 UNITS/3 ML VIAL SUBQ SCH ×2 (08:55→12:29)
[2020-12-05] MEDS ORDERED: polyethylene glycoL 3350 17 GM POWD.PACK PO SCH (09:00)
[2020-12-05 09:32] LABS: Immature Granulocytes % 1.9 % (0-4)
[2020-12-05 09:34] LABS: Basophils % 0.4 %; Eosinophils # 0.4 K/mcL (0.0-0.6); Eosinophils % 3.4 %; Hematocrit 29.6 % (35.3-44.9); Hemoglobin 8.4 g/dL (11.5-15.4); Lymphocytes # 0.8 K/mcL (0.6-4.6); Lymphocytes % 7.4 %; Mean Corpuscular HGB Conc 28.4 g/dL (31.6-35.5); Mean Corpuscular Hemoglobin 24.5 pg (28.0-33.3); Mean Corpuscular Volume 86.3 fL (83.0-100.0); Mean Platelet Volume 11.1 fL (9.4-12.4); Monocytes # 0.4 K/mcL (0.0-1.3); Monocytes % 3.3 %; Platelet Count 166 K/mcL (140-400); Red Blood Count 3.43 M/mcL (3.82-4.97); Red Cell Distribution Width 17.5 % (11.5-14.5); Segmented Neutrophils % 83.6 %; White Blood Count 10.7 K/mcL (4.3-11.1)
[2020-12-05] MEDS: Sennosides/Docusate Sodium TABLET PO SCH (09:35)
[2020-12-05] MEDS: Lactobacillus 1 EACH CAP.SPRINK PO SCH (09:35)
[2020-12-05 09:51] LABS: Magnesium 1.9 mg/dL (1.6-2.6); Phosphorous 3.3 mg/dL (2.7-4.5)
[2020-12-05 09:52] LABS: Calcium 8.4 mg/dL (8.6-10.3); Potassium 3.4 mEq/L (3.5-5.1)
[2020-12-05 10:06] LABS: Anisocytosis 1+ (Not Present); Hypochromasia Present (Not Present); Platelet Estimate Normal (Normal); Polychromasia 1+ (Not Present)
[2020-12-05 10:07] LABS: Large Platelets Present (Not Present)
[2020-12-05 11:12] VITALS: BP 108/72; PULSE 90; TEMP 97.1
[2020-12-05 12:27] VITALS: O2SAT 91
[2020-12-05] MEDS ORDERED: Vancomycin 500 MG in 0.9 % Sodium Chloride Mini Bag 100 ML IVPB SCH (21:00)
== END 2020-12-05 14:19 | DRG 853 ==
LOC: 3ANU 15:48 → EMEROOARM 15:48 → 3ANU 23:17 → SUATTDRO 12-01 02:04
PROVIDERS: ADMIT Student in an Organized Health Care Education/Training Program; ATTEND Internal Medicine

== ENCOUNTER 2020-12-18 16:38 | Observation (INO) ==
[2020-12-18 18:33] LABS: Basophils % 0.3 %; Eosinophils # 0.2 K/mcL (0.0-0.6); Hematocrit 31.9 % (35.3-44.9); Hemoglobin 8.8 g/dL (11.5-15.4); Immature Granulocytes % 0.4 % (0-4); Lymphocytes # 0.6 K/mcL (0.6-4.6); Lymphocytes % 7.7 %; Mean Corpuscular HGB Conc 27.6 g/dL (31.6-35.5); Mean Corpuscular Hemoglobin 24.9 pg (28.0-33.3); Mean Corpuscular Volume 90.4 fL (83.0-100.0); Mean Platelet Volume 10.9 fL (9.4-12.4); Monocytes # 0.4 K/mcL (0.0-1.3); Monocytes % 5.4 %; Neutrophils # 6.6 K/mcL (1.6-8.9); Platelet Count 135 K/mcL (140-400); Red Blood Count 3.53 M/mcL (3.82-4.97); Red Cell Distribution Width 22.7 % (11.5-14.5); Segmented Neutrophils % 84.2 %; White Blood Count 7.8 K/mcL (4.3-11.1)
[2020-12-18 18:52] LABS: BUN/Creatinine Ratio 30 (6-26); Blood Urea Nitrogen 65 mg/dL (8-23); Calcium 8.6 mg/dL (8.6-10.3); Carbon Dioxide 24 mEq/L (23-29); Chloride 106 mEq/L (98-107); Glucose 151 mg/dL (70-105); Osmolality,Calculated 302 (280-300); Sodium 135 mEq/L (136-145); Troponin I < 0.03 ng/mL (< 0.04); eGFR For African Americans 27 (> 60); eGFR For Non-African Americans 22 (> 60)
[2020-12-18] MEDS ORDERED: Piperacillin/Tazobactam 3.375 GM in 0.9 % Sodium Chloride Mini Bag 100 ML IVPB ONE (19:00)
[2020-12-18 19:03] LABS: Hypochromasia Present (Not Present)
[2020-12-18] MEDS ORDERED: Melatonin 3 MG TABLET PO PRN (21:21)
[2020-12-18] MEDS ORDERED: Ondansetron 4 MG/2 ML VIAL IVP PRN (21:21)
[2020-12-18] MEDS ORDERED: *HR* HYDROcodone/Acet 5/325 mg TABLET PO PRN (21:21)
[2020-12-18] MEDS ORDERED: Naloxone 0.4 MG/ML INJ IVP PRN (21:21)
[2020-12-18] MEDS ORDERED: *HR* OxyCODONE Immed Rel 5 MG TABLET PO PRN (21:21)
[2020-12-18] MEDS ORDERED: Acetaminophen 325 MG TABLET PO PRN (21:21)
[2020-12-18] MEDS ORDERED: Sennosides 8.6 MG TABLET PO PRN (21:25)
[2020-12-18] MEDS: Ringers Solution, Lactated 1,000 ML IVC SCH (22:49)
[2020-12-19] MEDS ORDERED: Ringers Solution, Lactated 1,000 ML IVC ONE (00:03)
[2020-12-19 00:04] LABS: Adenovirus Not Detected (Not Detect); Bordetella Pertussis Not Detected (Not Detect); Chlamydophila pneumoniae Not Detected (Not Detect); Coronavirus 229E Not Detected (Not Detect); Coronavirus HKU1 Not Detected (Not Detect); Coronavirus NL63 Not Detected (Not Detect); Coronavirus OC43 Not Detected (Not Detect); Human Metapneumovirus Not Detected (Not Detect); Human Rhinovirus/Enterovirus Not Detected (Not Detect); Influenza A Subtype 2009 H1 Not Detected (Not Detect); Influenza B Not Detected (Not Detect); Mycoplasma pneumoniae Not Detected (Not Detect); Parainfluenza Virus 1 Not Detected (Not Detect); Parainfluenza Virus 2 Not Detected (Not Detect); Parainfluenza Virus 3 Not Detected (Not Detect); Parainfluenza Virus 4 Not Detected (Not Detect); Respiratory Syncytial Virus Not Detected (Not Detect); SARS-CoV-2 Not Detected (Not Detect)
[2020-12-19] MEDS ORDERED: DAPTOmycin 300 MG in 0.9 % Sodium Chloride 100 ML IVPB ONE (04:00)
[2020-12-19 04:18] LABS: Creatinine,Urine 84 mg/dL; Sodium, Urine < 10.0 mEq/L
[2020-12-19 06:00] LABS: Basophils % 0.6 %; Hemoglobin 8.3 g/dL (11.5-15.4); Immature Granulocytes % 0.4 % (0-4); Mean Corpuscular Hemoglobin 25.2 pg (28.0-33.3); Mean Corpuscular Volume 90.6 fL (83.0-100.0)
[2020-12-19 06:02] LABS: Eosinophils # 0.2 K/mcL (0.0-0.6); Eosinophils % 4.3 %; Hematocrit 29.8 % (35.3-44.9); Lymphocytes # 0.7 K/mcL (0.6-4.6); Lymphocytes % 12.8 %; Mean Corpuscular HGB Conc 27.9 g/dL (31.6-35.5); Mean Platelet Volume 11.2 fL (9.4-12.4); Monocytes # 0.3 K/mcL (0.0-1.3); Monocytes % 6.6 %; Platelet Count 112 K/mcL (140-400); Red Blood Count 3.29 M/mcL (3.82-4.97); Red Cell Distribution Width 22.6 % (11.5-14.5); Segmented Neutrophils % 75.3 %; White Blood Count 5.1 K/mcL (4.3-11.1)
[2020-12-19 06:04] LABS: Neutrophils # 3.8 K/mcL (1.6-8.9)
[2020-12-19 06:11] LABS: INR 1.4; Prothrombin Time 16.4 Seconds (9.4-12.1)
[2020-12-19 06:25] LABS: Albumin 2.5 g/dL (3.5-5.7); Albumin/Globulin Ratio 0.6 (1.1-2.2); Bilirubin,Total 0.4 mg/dL (0.3-1.0); Calcium 8.1 mg/dL (8.6-10.3); Globulin 4.1 g/dL (2.4-3.5); Magnesium 2.5 mg/dL (1.6-2.6); Phosphorous 4.3 mg/dL (2.7-4.5); Potassium 4.9 mEq/L (3.5-5.1); Total Protein 6.6 g/dL (6.4-8.9)
[2020-12-19 06:26] LABS: Platelet Estimate Slight Decrease (Normal)
[2020-12-19 06:27] LABS: Anisocytosis 2+ (Not Present); Hypochromasia Present (Not Present); Polychromasia 1+ (Not Present)
[2020-12-19] MEDS ORDERED: Piperacillin/Tazobactam 3.375 GM in 0.9 % Sodium Chloride Mini Bag 100 ML IVPB SCH (08:00)
[2020-12-19] MEDS: Cefepime HCl 1,000 MG in Water for inj. (sterile) 10 ML IVP SCH ×2 (12:22→21:08)
[2020-12-19] MEDS: polyethylene glycoL 3350 17 GM POWD.PACK PO SCH (12:23)
[2020-12-19] MEDS ORDERED: *HR* Dextrose 50 % in Water (Vial) 50 ML VIAL IVP PRN (14:48)
[2020-12-19] MEDS ORDERED: D5% in Water 1,000 ML IVC PRN (14:48)
[2020-12-19] MEDS ORDERED: Dextrose Gel 15 GM/37.5 ML TUBE PO PRN ×2 (14:48)
[2020-12-19] MEDS ORDERED: *HR* LORazepam 0.5 MG TABLET PO PRN (14:53)
[2020-12-19] MEDS ORDERED: Bisacodyl 10 MG RECTAL SUPPOSITORY RC PRN (14:53)
[2020-12-19] MEDS: Insulin LISPRO 300 UNITS/3 ML VIAL SUBQ SCH (18:37)
[2020-12-19] MEDS: *HR* Heparin 5,000 UNIT/ML VIAL SQ SCH (18:41)
[2020-12-19] MEDS: Gabapentin 100 MG CAPSULE PO SCH ×2 (18:42→21:07)
[2020-12-19] MEDS: metroNIDAZOLE 500 MG TABLET PO SCH ×2 (18:42→21:08)
[2020-12-19] MEDS: Lactobacillus 1 EACH CAP.SPRINK PO SCH (21:08)
[2020-12-19] MEDS ORDERED: Lidocaine/EPI 1:100k 1% 20 ML VIAL INFILT ONE (21:59)
[2020-12-20] MEDS: Insulin LISPRO 300 UNITS/3 ML VIAL SUBQ SCH ×4 (00:32→21:19)
[2020-12-20] MEDS: Ringers Solution, Lactated 1,000 ML IVC SCH (00:33)
[2020-12-20] MEDS: DAPTOmycin 500 MG in 0.9 % Sodium Chloride 100 ML IVPB SCH (04:07)
[2020-12-20 05:22] LABS: Hematocrit 30.7 % (35.3-44.9); Hemoglobin 8.5 g/dL (11.5-15.4)
[2020-12-20] MEDS: *HR* Heparin 5,000 UNIT/ML VIAL SQ SCH ×2 (06:28→19:15)
[2020-12-20] MEDS: metroNIDAZOLE 500 MG TABLET PO SCH ×3 (09:24→21:18)
[2020-12-20] MEDS: Gabapentin 100 MG CAPSULE PO SCH ×3 (09:25→21:18)
[2020-12-20] MEDS: Cefepime HCl 1,000 MG in Water for inj. (sterile) 10 ML IVP SCH ×2 (09:25→21:47)
[2020-12-20] MEDS: Lactobacillus 1 EACH CAP.SPRINK PO SCH ×2 (09:25→21:18)
[2020-12-20] MEDS: polyethylene glycoL 3350 17 GM POWD.PACK PO SCH (09:26)
[2020-12-20 11:21] LABS: Calcium 8.4 mg/dL (8.6-10.3); Magnesium 2.5 mg/dL (1.6-2.6); Phosphorous 3.8 mg/dL (2.7-4.5); Potassium 4.4 mEq/L (3.5-5.1)
[2020-12-20] MEDS: Furosemide 20 MG TABLET PO SCH (15:41)
[2020-12-20] MEDS: Multivit/Ca/Min/Fe/FA 1 TAB TABLET PO SCH (15:41)
[2020-12-21 01:12] LABS: Hemoglobin 8.4 g/dL (11.5-15.4); Segmented Neutrophils % 69.2 %
[2020-12-21 01:14] LABS: Basophils % 0.5 %; Eosinophils # 0.3 K/mcL (0.0-0.6); Eosinophils % 4.3 %; Hematocrit 29.4 % (35.3-44.9); Immature Granulocytes % 0.9 % (0-4); Lymphocytes # 0.9 K/mcL (0.6-4.6); Lymphocytes % 16.2 %; Mean Corpuscular HGB Conc 28.6 g/dL (31.6-35.5); Mean Corpuscular Hemoglobin 25.5 pg (28.0-33.3); Mean Corpuscular Volume 89.4 fL (83.0-100.0); Mean Platelet Volume 11.1 fL (9.4-12.4); Monocytes # 0.5 K/mcL (0.0-1.3); Monocytes % 8.9 %; Platelet Count 133 K/mcL (140-400); Red Blood Count 3.29 M/mcL (3.82-4.97); Red Cell Distribution Width 23.5 % (11.5-14.5); White Blood Count 5.8 K/mcL (4.3-11.1)
[2020-12-21 01:38] LABS: Anisocytosis 2+ (Not Present); Hypochromasia Present (Not Present); Platelet Estimate Normal (Normal)
[2020-12-21 01:57] LABS: Calcium 8.3 mg/dL (8.6-10.3); Magnesium 2.4 mg/dL (1.6-2.6); Phosphorous 3.2 mg/dL (2.7-4.5); Potassium 4.1 mEq/L (3.5-5.1)
[2020-12-21] MEDS: DAPTOmycin 500 MG in 0.9 % Sodium Chloride 100 ML IVPB SCH (04:10)
[2020-12-21] MEDS: *HR* Heparin 5,000 UNIT/ML VIAL SQ SCH ×2 (06:09→17:21)
[2020-12-21] MEDS: Furosemide 20 MG TABLET PO SCH (08:44)
[2020-12-21] MEDS: polyethylene glycoL 3350 17 GM POWD.PACK PO SCH (08:44)
[2020-12-21] MEDS: Gabapentin 100 MG CAPSULE PO SCH ×3 (08:44→19:59)
[2020-12-21] MEDS: Multivit/Ca/Min/Fe/FA 1 TAB TABLET PO SCH (08:44)
[2020-12-21] MEDS: metroNIDAZOLE 500 MG TABLET PO SCH ×3 (08:44→19:59)
[2020-12-21] MEDS: Lactobacillus 1 EACH CAP.SPRINK PO SCH ×2 (08:44→19:58)
[2020-12-21] MEDS: Insulin LISPRO 300 UNITS/3 ML VIAL SUBQ SCH ×4 (08:45→20:01)
[2020-12-21] MEDS: Cefepime HCl 1,000 MG in Water for inj. (sterile) 10 ML IVP SCH ×2 (08:45→19:59)
[2020-12-21 10:50] LABS: Campylobacter by PCR Not detected (Not detect)
[2020-12-21 10:53] LABS: Adenovirus F 40/41 PCR Not detected (Not detect); Astrovirus PCR Not detected (Not detect); C.difficile Toxin A/B Gene PCR DETECTED (Not detect); Cryptosporidium by PCR Not detected (Not detect); Cyclospora cayetanensis PCR Not detected (Not detect); E. coli O157 by PCR Not detected (Not detect); Entamoeba histolytica PCR Not detected (Not detect); Enteroaggregative E.coli(EAEC) Not detected (Not detect); Enteropathogenic E.coli(EPEC) Not detected (Not detect); Enterotoxigenic E.coli (ETEC) Not detected (Not detect); Giardia lamblia PCR Not detected (Not detect); Norovirus GI/GII PCR Not detected (Not detect); Plesiomonas shigelloides PCR Not detected (Not detect); Rotavirus A PCR Not detected (Not detect); Salmonella PCR Not detected (Not detect); Sapovirus PCR Not detected (Not detect); Shig/EnteroinvasiveE coli EIEC Not detected (Not detect); Shigalike tox-prod E coli STEC Not detected (Not detect); Vibrio PCR Not detected (Not detect); Vibrio cholerae PCR Not detected (Not detect); Yersinia enterocolitica PCR Not detected (Not detect)
[2020-12-21] MEDS: Vancomycin Oral Soln 125 MG/2.5 ML UDC PO SCH ×3 (12:42→23:27)
[2020-12-22] MEDS: Insulin LISPRO 300 UNITS/3 ML VIAL SUBQ SCH ×4 (03:27→17:54)
[2020-12-22 04:07] LABS: Calcium 8.2 mg/dL (8.6-10.3); Magnesium 2.4 mg/dL (1.6-2.6); Phosphorous 3.2 mg/dL (2.7-4.5); Potassium 3.9 mEq/L (3.5-5.1)
[2020-12-22 04:14] LABS: Hematocrit 29.3 % (35.3-44.9); Hemoglobin 8.1 g/dL (11.5-15.4)
[2020-12-22] MEDS: DAPTOmycin 500 MG in 0.9 % Sodium Chloride 100 ML IVPB SCH (04:42)
[2020-12-22] MEDS: *HR* Heparin 5,000 UNIT/ML VIAL SQ SCH ×2 (06:11→17:53)
[2020-12-22] MEDS: Lactobacillus 1 EACH CAP.SPRINK PO SCH (10:01)
[2020-12-22] MEDS: Gabapentin 100 MG CAPSULE PO SCH ×2 (10:01→16:26)
[2020-12-22] MEDS: Cefepime HCl 1,000 MG in Water for inj. (sterile) 10 ML IVP SCH (10:01)
[2020-12-22] MEDS: Multivit/Ca/Min/Fe/FA 1 TAB TABLET PO SCH (10:01)
[2020-12-22] MEDS: metroNIDAZOLE 500 MG TABLET PO SCH ×2 (10:01→16:26)
[2020-12-22] MEDS: Furosemide 20 MG TABLET PO SCH (10:05)
[2020-12-22] MEDS: Vancomycin Oral Soln 125 MG/2.5 ML UDC PO SCH ×3 (12:17→17:53)
[2020-12-22 14:40] VITALS: BP 102/62; PULSE 91; TEMP 7.6; O2SAT 98
[2020-12-22] MEDS ORDERED: cefTRIAXone 2,000 MG in 0.9 % Sodium Chloride Mini Bag 100 ML IVPB SCH (16:00)
== END 2020-12-22 19:22 ==
LOC: EMEROOARM 16:38 → 3NENU 16:38 → SUATTDRO 19:44 → 3NENU 20:56
PROVIDERS: ADMIT Internal Medicine; ATTEND Internal Medicine

== ENCOUNTER 2021-01-05 19:13 | Inpatient (IN) ==
[2021-01-05] MEDS ORDERED: Ipratropium/Albuterol Neb 3 ML IH ONE (19:17)
[2021-01-05] MEDS ORDERED: cefTRIAXone 1,000 MG in Water for inj. (sterile) 10 ML IVP ONE (19:17)
[2021-01-05] MEDS ORDERED: methylPREDNISolone 125 MG/2 ML VIAL IVP ONE (19:17)
[2021-01-05] MEDS ORDERED: Azithromycin 500 MG in 0.9 % Sodium Chloride 250 ML IVPB ONE (19:17)
[2021-01-05] MEDS ORDERED: Isovue-370 500 ML BOTTLE IVP ONE (19:19)
[2021-01-05 20:14] LABS: Basophils % 0.2 %; Eosinophils % 0.5 %; Hemoglobin 9.9 g/dL (11.5-15.4)
[2021-01-05 20:16] LABS: Eosinophils # 0.1 K/mcL (0.0-0.6); Hematocrit 34.8 % (35.3-44.9); Immature Granulocytes % 0.7 % (0-4); Immature Platelets 5.8 % (1.1-6.1); Lymphocytes % 3.7 %; Mean Corpuscular HGB Conc 28.4 g/dL (31.6-35.5); Mean Corpuscular Hemoglobin 26.5 pg (28.0-33.3); Mean Platelet Volume 11.1 fL (9.4-12.4); Monocytes # 0.7 K/mcL (0.0-1.3); Monocytes % 4.5 %; Neutrophils # 13.3 K/mcL (1.6-8.9); Platelet Count 109 K/mcL (140-400); Red Blood Count 3.74 M/mcL (3.82-4.97); Red Cell Distribution Width 25.3 % (11.5-14.5); Segmented Neutrophils % 90.4 %; White Blood Count 14.7 K/mcL (4.3-11.1)
[2021-01-05 20:26] LABS: Lymphocytes # 0.5 K/mcL (0.6-4.6)
[2021-01-05 20:44] LABS: VBG HCO3 19 mEq/L (21-27); VBG PCO2 60 mmHg (41-51); VBG PH 7.12 pH Units (7.32-7.42); VBG PO2 74 mmHg (25-50)
[2021-01-05 20:44] LABS: Alanine Aminotransferase 5 Units/L (7-52); Albumin 3.1 g/dL (3.5-5.7); Albumin/Globulin Ratio 0.7 (1.1-2.2); Alkaline Phosphatase 62 Units/L (34-104); Aspartate Amino Transferase 8 Units/L (13-39); BUN/Creatinine Ratio 18 (6-26); Bilirubin,Direct 0.1 mg/dL (0.0-0.2); Bilirubin,Indirect 0.3 mg/dL (0.0-1.0); Bilirubin,Total 0.4 mg/dL (0.3-1.0); Blood Urea Nitrogen 87 mg/dL (8-23); Calcium 8.7 mg/dL (8.6-10.3); Carbon Dioxide 18 mEq/L (23-29); Chloride 107 mEq/L (98-107); Globulin 4.3 g/dL (2.4-3.5); Glucose 118 mg/dL (70-105); Osmolality,Calculated 308 (280-300); Potassium 4.3 mEq/L (3.5-5.1); Sodium 135 mEq/L (136-145); Total Protein 7.4 g/dL (6.4-8.9); eGFR For African Americans 11 (> 60); eGFR For Non-African Americans 9 (> 60)
[2021-01-05 20:52] LABS: Anisocytosis 2+ (Not Present); Platelet Estimate Decreased (Normal); Polychromasia 1+ (Not Present)
[2021-01-05 20:53] LABS: Troponin I < 0.03 ng/mL (< 0.04)
[2021-01-05 20:56] LABS: INR 1.7; Prothrombin Time 19.7 Seconds (9.4-12.1)
[2021-01-05 20:59] LABS: Activated Partial Thrombo Time 44.3 Seconds (26.0-36.0)
[2021-01-05 21:27] LABS: Adenovirus Not Detected (Not Detect); Bordetella Pertussis Not Detected (Not Detect); Chlamydophila pneumoniae Not Detected (Not Detect); Coronavirus 229E Not Detected (Not Detect); Coronavirus HKU1 Not Detected (Not Detect); Coronavirus NL63 Not Detected (Not Detect); Coronavirus OC43 Not Detected (Not Detect); Human Metapneumovirus Not Detected (Not Detect); Human Rhinovirus/Enterovirus Not Detected (Not Detect); Influenza A Subtype 2009 H1 Not Detected (Not Detect); Influenza B Not Detected (Not Detect); Mycoplasma pneumoniae Not Detected (Not Detect); Parainfluenza Virus 1 Not Detected (Not Detect); Parainfluenza Virus 2 Not Detected (Not Detect); Parainfluenza Virus 3 Not Detected (Not Detect); Parainfluenza Virus 4 Not Detected (Not Detect); Respiratory Syncytial Virus Not Detected (Not Detect); SARS-CoV-2 Not Detected (Not Detect)
[2021-01-05 21:47] LABS: Bacteria,Urine Few per hpf (None-Few); Bilirubin,Urine Negative (Negative); Blood,Urine Large (Negative); Budding Yeast,Urine Many per hpf (None Seen); Clarity,Urine Ex.Turbid (Clear); Color,Urine Dark-Yellow (Yellow); Glucose,Urine (UA) Normal (Normal); Ketones,Urine Trace mg/dL (Negative); Leukocyte Esterase,Urine Large (Negative); Nitrite,Urine Negative (Negative); PH,Urine 5.5 pH Units (5.0-8.0); Protein,Urine >=300 mg/dL (Neg-Trace); RBC,Urine TNTC per hpf (0-3); Specific Gravity,Urine 1.023 (1.010-1.025); Squamous Epithelial Cell,Urine Few per hpf (None-Few); Transitional Epi Cells,Urine Few per hpf (None-Few); Urobilinogen,Urine Normal (Normal); WBC,Urine TNTC per hpf (0-3)
[2021-01-05] MEDS ORDERED: 0.9 % Sodium Chloride 1,000 ML IVC ONE (22:52)
[2021-01-05] MEDS ORDERED: Acetaminophen 325 MG TABLET PO PRN (23:08)
[2021-01-05] MEDS ORDERED: Ondansetron 4 MG/2 ML VIAL IVP PRN (23:08)
[2021-01-05] MEDS ORDERED: Naloxone 0.4 MG/ML INJ IVP PRN (23:08)
[2021-01-05] MEDS ORDERED: *HR* HYDROcodone/Acet 5/325 mg TABLET PO PRN (23:08)
[2021-01-05] MEDS ORDERED: Melatonin 3 MG TABLET PO PRN (23:08)
[2021-01-05] MEDS ORDERED: *HR* Promethazine 25 MG/ML VIAL IM PRN (23:08)
[2021-01-06] MEDS ORDERED: Piperacillin/Tazobactam 3.375 GM in 0.9 % Sodium Chloride Mini Bag 100 ML IVPB SCH
[2021-01-06] MEDS ORDERED: Cefepime HCl 2,000 MG in Water for inj. (sterile) 10 ML IVP SCH
[2021-01-06] MEDS ORDERED: *HR* Midazolam HCl 5 MG/5 ML VIAL IVP ONE (00:01)
[2021-01-06] MEDS ORDERED: *HR* Etomidate 20 MG/10 ML AMPUL IVP ONE (00:01)
[2021-01-06] MEDS ORDERED: *HR* Succinylcholine 200 MG/10 ML VIAL IVP ONE (00:01)
[2021-01-06 00:06] LABS: VBG HCO3 19 mEq/L (21-27); VBG PCO2 55 mmHg (41-51); VBG PH 7.15 pH Units (7.32-7.42); VBG PO2 72 mmHg (25-50)
[2021-01-06] MEDS ORDERED: Ipratropium/Albuterol Neb 3 ML IH PRN (00:45)
[2021-01-06] MEDS ORDERED: Ringers Solution, Lactated 500 ML IVC ONE (02:00)
[2021-01-06 02:22] LABS: Basophils % 0.1 %; Monocytes % 0.6 %; Red Cell Distribution Width 25.2 % (11.5-14.5)
[2021-01-06 02:23] LABS: VBG HCO3 18 mEq/L (21-27); VBG PCO2 52 mmHg (41-51); VBG PH 7.15 pH Units (7.32-7.42); VBG PO2 67 mmHg (25-50)
[2021-01-06 02:24] LABS: Hemoglobin 9.7 g/dL (11.5-15.4); Immature Granulocytes % 0.4 % (0-4); Immature Platelets 5.5 % (1.1-6.1); Lymphocytes # 0.3 K/mcL (0.6-4.6); Mean Corpuscular HGB Conc 28.5 g/dL (31.6-35.5); Mean Corpuscular Hemoglobin 26.8 pg (28.0-33.3); Mean Corpuscular Volume 93.9 fL (83.0-100.0); Mean Platelet Volume 12.3 fL (9.4-12.4); Monocytes # 0.1 K/mcL (0.0-1.3); Neutrophils # 13.8 K/mcL (1.6-8.9); Red Blood Count 3.62 M/mcL (3.82-4.97); Segmented Neutrophils % 96.9 %; White Blood Count 14.2 K/mcL (4.3-11.1)
[2021-01-06 02:26] LABS: INR 1.9; Prothrombin Time 21.2 Seconds (9.4-12.1)
[2021-01-06 02:33] LABS: Platelet Count 85 K/mcL (140-400)
[2021-01-06 02:44] LABS: Calcium 8.6 mg/dL (8.6-10.3); Chol/HDL Ratio 2.5 (0-4.9); Magnesium 2.4 mg/dL (1.6-2.6); Phosphorous 7.1 mg/dL (2.7-4.5); Potassium 4.7 mEq/L (3.5-5.1)
[2021-01-06 03:01] LABS: Anisocytosis 2+ (Not Present); Platelet Estimate Decreased (Normal)
[2021-01-06] MEDS: Ipratropium/Albuterol Neb 3 ML IH SCH ×5 (03:48→20:14)
[2021-01-06] MEDS: Cefepime HCl 2,000 MG in Water for inj. (sterile) 10 ML IVP SCH (04:59)
[2021-01-06] MEDS: *HR* Heparin 5,000 UNIT/ML VIAL SQ SCH ×3 (05:01→22:20)
[2021-01-06] MEDS: MetroNIDAZOLE 500 MG/100 ML 500 MG/100 ML BAG IVPB SCH ×5 (06:30→23:28)
[2021-01-06] MEDS ORDERED: 0.9 % Sodium Chloride 1,000 ML IVC ONE (08:11)
[2021-01-06] MEDS ORDERED: 0.9 % Sodium Chloride 500 ML IVC ONE (08:11)
[2021-01-06] MEDS ORDERED: 0.9 % Sodium Chloride 500 ML ONE (08:13)
[2021-01-06 08:26] LABS: ABG Base Excess -11 mEq/L (-2 to 3); ABG HCO3 19 mEq/L (21-27); ABG Oxygen Saturation 98 % (95-98); ABG PCO2 56 mmHg (35-45); ABG PH 7.13 pH Units (7.32-7.45); ABG PO2 129 mmHg (85-104); ABG TCO2 20 mEq/L (20-26)
[2021-01-06] MEDS ORDERED: DAPTOmycin 500 MG in 0.9 % Sodium Chloride 100 ML IVPB SCH (09:00)
[2021-01-06] MEDS: Norepinephrine 8 MG in 0.9 % Sodium Chloride 250 ML IVC SCH ×2 (09:09→21:57)
[2021-01-06] MEDS: Midazolam HCl 50 MG/100 ML IV.SOLN IVC SCH ×2 (09:09→17:54)
[2021-01-06] MEDS: FentaNYL (PF) 1,000 MCG/100 ML IV.SOLN IVC SCH ×2 (09:10→16:33)
[2021-01-06] MEDS ORDERED: Artificial Tears SOLN 15 ML BOTTLE BOTH EYES PRN (09:22)
[2021-01-06] MEDS: Vancomycin Oral Soln 125 MG/2.5 ML UDC PO SCH ×2 (10:16→20:52)
[2021-01-06 11:25] LABS: ABG Base Excess -10 mEq/L (-2 to 3); ABG HCO3 18 mEq/L (21-27); ABG Oxygen Saturation 91 % (95-98); ABG PCO2 46 mmHg (35-45); ABG PO2 75 mmHg (85-104); ABG TCO2 20 mEq/L (20-26); Blood Gas VT 400 cc
[2021-01-06] MEDS: Artificial Tears SOLN 15 ML BOTTLE BOTH EYES SCH ×4 (12:46→23:27)
[2021-01-06] MEDS: Pantoprazole 40 MG VIAL IVP SCH (12:46)
[2021-01-06 15:38] LABS: ABG Base Excess -10 mEq/L (-2 to 3); ABG HCO3 15 mEq/L (21-27); ABG Oxygen Saturation 93 % (95-98); ABG PCO2 29 mmHg (35-45); ABG PH 7.31 pH Units (7.32-7.45); ABG PO2 73 mmHg (85-104); ABG TCO2 16 mEq/L (20-26); Blood Gas VT 400 cc
[2021-01-06] MEDS ORDERED: *HR* EPINEPHrine 1 MG/10 ML SYRINGE INTRATRACH PRN (17:30)
[2021-01-06 17:39] LABS: Hemoglobin 10.3 g/dL (11.5-15.4); Red Cell Distribution Width 25.2 % (11.5-14.5)
[2021-01-06 17:41] LABS: Hematocrit 35.5 % (35.3-44.9); Immature Platelets 4.1 % (1.1-6.1); Mean Corpuscular Hemoglobin 26.3 pg (28.0-33.3); Mean Corpuscular Volume 90.8 fL (83.0-100.0); Mean Platelet Volume 11.8 fL (9.4-12.4); Red Blood Count 3.91 M/mcL (3.82-4.97); White Blood Count 14.7 K/mcL (4.3-11.1)
[2021-01-06 18:14] LABS: Albumin 2.9 g/dL (3.5-5.7); Albumin/Globulin Ratio 0.7 (1.1-2.2); Bilirubin,Total 0.5 mg/dL (0.3-1.0); Calcium 8.6 mg/dL (8.6-10.3); Globulin 4.3 g/dL (2.4-3.5); Magnesium 2.7 mg/dL (1.6-2.6); Potassium 4.2 mEq/L (3.5-5.1); Total Protein 7.2 g/dL (6.4-8.9)
[2021-01-06] MEDS ORDERED: Sodium Bicarbonate 150 MEQ in D5% in Water 1,000 ML IVC SCH (18:45)
[2021-01-06] MEDS: Cisatracurium 200 MG in 0.9 % Sodium Chloride 180 ML IVC SCH (18:54)
[2021-01-06 20:23] LABS: Appearance of Body Fluid Hazy (Clear); Volume of Body Fluid 11 mL
[2021-01-06] MEDS: Chlorhexidine Rinse 15 ML MOUTHWASH MM SCH (20:52)
[2021-01-06 21:21] LABS: Protein/Creatinine Ratio,Urine 1.91 mg/mg (0.00-0.20); Sodium, Urine 19.4 mEq/L
[2021-01-06 23:23] LABS: Appearance of Body Fluid Hazy (Clear); Volume of Body Fluid 22 mL
[2021-01-07] MEDS: Ipratropium/Albuterol Neb 3 ML IH SCH ×7 (00:03→23:20)
[2021-01-07 00:26] LABS: Calcium 8.4 mg/dL (8.6-10.3); Potassium 3.8 mEq/L (3.5-5.1)
[2021-01-07] MEDS: FentaNYL (PF) 1,000 MCG/100 ML IV.SOLN IVC SCH ×3 (01:00→15:43)
[2021-01-07] MEDS: Cefepime HCl 2,000 MG in Water for inj. (sterile) 10 ML IVP SCH (02:28)
[2021-01-07] MEDS: Midazolam HCl 50 MG/100 ML IV.SOLN IVC SCH ×3 (02:31→20:04)
[2021-01-07] MEDS: Artificial Tears SOLN 15 ML BOTTLE BOTH EYES SCH ×6 (03:23→23:17)
[2021-01-07 04:16] LABS: Hematocrit 31.5 % (35.3-44.9); Hemoglobin 9.2 g/dL (11.5-15.4); Immature Platelets 4.2 % (1.1-6.1); Mean Corpuscular HGB Conc 29.2 g/dL (31.6-35.5); Mean Corpuscular Hemoglobin 26.4 pg (28.0-33.3); Mean Corpuscular Volume 90.3 fL (83.0-100.0); Mean Platelet Volume 11.2 fL (9.4-12.4); Red Blood Count 3.49 M/mcL (3.82-4.97); Red Cell Distribution Width 25.5 % (11.5-14.5); White Blood Count 10.8 K/mcL (4.3-11.1)
[2021-01-07 04:25] LABS: ABG Base Excess -7 mEq/L (-2 to 3); ABG HCO3 17 mEq/L (21-27); ABG Oxygen Saturation 96 % (95-98); ABG PCO2 31 mmHg (35-45); ABG PH 7.35 pH Units (7.32-7.45); ABG PO2 83 mmHg (85-104); ABG TCO2 18 mEq/L (20-26); Blood Gas VT 400 cc
[2021-01-07] MEDS ORDERED: *HR* Metoprolol 5 MG/5 ML VIAL IVP ONE (04:30)
[2021-01-07 04:33] LABS: Calcium 8.2 mg/dL (8.6-10.3); Magnesium 2.5 mg/dL (1.6-2.6); Potassium 3.6 mEq/L (3.5-5.1)
[2021-01-07] MEDS: MetroNIDAZOLE 500 MG/100 ML 500 MG/100 ML BAG IVPB SCH ×3 (05:20→19:24)
[2021-01-07] MEDS: *HR* Heparin 5,000 UNIT/ML VIAL SQ SCH ×3 (05:21→22:43)
[2021-01-07] MEDS: Cisatracurium 200 MG in 0.9 % Sodium Chloride 180 ML IVC SCH (06:00)
[2021-01-07] MEDS: Chlorhexidine Rinse 15 ML MOUTHWASH MM SCH ×2 (08:12→19:23)
[2021-01-07] MEDS: Vancomycin Oral Soln 125 MG/2.5 ML UDC PO SCH ×2 (08:12→19:24)
[2021-01-07] MEDS: Pantoprazole 40 MG VIAL IVP SCH (08:13)
[2021-01-07 08:37] LABS: Hepatitis B Surface Antibody < 3.10 mIU/mL
[2021-01-07 10:27] LABS: Hepatitis B Surface Antigen Nonreactive (Nonreactive)
[2021-01-07] MEDS ORDERED: Albumin 25% 25gram/100mL 25 GM/100 ML IV.SOLN IVPB ONE (11:09)
[2021-01-07] MEDS: Norepinephrine 8 MG in 0.9 % Sodium Chloride 250 ML IVC SCH (15:35)
[2021-01-07] MEDS: methylPREDNISolone 125 MG/2 ML VIAL IVP SCH ×2 (16:15→23:18)
[2021-01-07] MEDS ORDERED: Phenylephrine 10 MG in 0.9 % Sodium Chloride 250 ML IVC SCH (16:30)
[2021-01-07] MEDS: DilTIAZem 50 MG in 0.9 % Sodium Chloride 40 ML IVC SCH ×3 (16:42→22:31)
[2021-01-07] MEDS: Phenylephrine 50 MG in 0.9 % Sodium Chloride 250 ML IVC SCH (17:50)
[2021-01-07] MEDS ORDERED: Cefepime HCl 1,000 MG in Water for inj. (sterile) 10 ML IVP SCH (21:00)
[2021-01-08] MEDS: FentaNYL (PF) 1,000 MCG/100 ML IV.SOLN IVC SCH ×2 (01:46→11:52)
[2021-01-08] MEDS: DilTIAZem 50 MG in 0.9 % Sodium Chloride 40 ML IVC SCH ×3 (02:24→17:31)
[2021-01-08] MEDS: Phenylephrine 50 MG in 0.9 % Sodium Chloride 250 ML IVC SCH ×2 (02:36→14:35)
[2021-01-08] MEDS: Artificial Tears SOLN 15 ML BOTTLE BOTH EYES SCH ×5 (03:26→19:59)
[2021-01-08] MEDS: MetroNIDAZOLE 500 MG/100 ML 500 MG/100 ML BAG IVPB SCH ×3 (03:27→19:59)
[2021-01-08 03:34] LABS: Hemoglobin 9.3 g/dL (11.5-15.4); Mean Corpuscular HGB Conc 29.1 g/dL (31.6-35.5); Mean Corpuscular Hemoglobin 26.3 pg (28.0-33.3); Mean Corpuscular Volume 90.7 fL (83.0-100.0); Mean Platelet Volume 11.3 fL (9.4-12.4); Platelet Count 156 K/mcL (140-400); Red Blood Count 3.53 M/mcL (3.82-4.97); Red Cell Distribution Width 25.5 % (11.5-14.5); White Blood Count 12.1 K/mcL (4.3-11.1)
[2021-01-08] MEDS: Ipratropium/Albuterol Neb 3 ML IH SCH ×5 (03:37→20:20)
[2021-01-08 03:52] LABS: ABG Base Excess -8 mEq/L (-2 to 3); ABG HCO3 18 mEq/L (21-27); ABG Oxygen Saturation 94 % (95-98); ABG PCO2 38 mmHg (35-45); ABG PH 7.28 pH Units (7.32-7.45); ABG PO2 77 mmHg (85-104); ABG TCO2 19 mEq/L (20-26); Blood Gas VT 400 cc
[2021-01-08 03:53] LABS: Albumin/Globulin Ratio 0.8 (1.1-2.2); Bilirubin,Total 0.5 mg/dL (0.3-1.0); Calcium 8.3 mg/dL (8.6-10.3); Globulin 3.8 g/dL (2.4-3.5); Magnesium 2.8 mg/dL (1.6-2.6); Potassium 4.4 mEq/L (3.5-5.1); Total Protein 6.8 g/dL (6.4-8.9)
[2021-01-08] MEDS: *HR* Heparin 5,000 UNIT/ML VIAL SQ SCH ×3 (05:43→22:51)
[2021-01-08] MEDS: Pantoprazole 40 MG VIAL IVP SCH (08:38)
[2021-01-08] MEDS: methylPREDNISolone 125 MG/2 ML VIAL IVP SCH ×2 (08:38→16:39)
[2021-01-08] MEDS: Albumin Human 5% 12.5 GM/250 ML IV.SOLN IVC SCH ×2 (08:38→09:06)
[2021-01-08] MEDS: Chlorhexidine Rinse 15 ML MOUTHWASH MM SCH ×2 (08:38→19:59)
[2021-01-08] MEDS: Vancomycin Oral Soln 125 MG/2.5 ML UDC PO SCH ×2 (08:39→19:59)
[2021-01-08] MEDS ORDERED: *HR* Heparin 5,000 UNIT/ML VIAL IVP PRN (10:03)
[2021-01-08] MEDS ORDERED: 0.9 % Sodium Chloride 1,000 ML PRIME ONE ×2 (10:03)
[2021-01-08] MEDS ORDERED: *HR* Alteplase (Cathflo) 2 MG VIAL IVP PRN (10:03)
[2021-01-08] MEDS ORDERED: 0.9 % Sodium Chloride 1,000 ML PRIME SCH (10:15)
[2021-01-08] MEDS ORDERED: Heparin 1,000 UNITS/500 mL 500 ML ONE (11:37)
[2021-01-08] MEDS ORDERED: *HR* Heparin 5,000 UNIT/ML VIAL ONE (13:43)
[2021-01-08] MEDS: Midazolam HCl 50 MG/100 ML IV.SOLN IVC SCH (16:00)
[2021-01-08] MEDS: Cefepime HCl 2,000 MG in Water for inj. (sterile) 10 ML IVP SCH (16:39)
[2021-01-08] MEDS: PrismaSATE BGK 4/2.5 5,000 ML CRRT SCH ×4 (16:50→21:50)
[2021-01-08] MEDS: Cisatracurium 200 MG in 0.9 % Sodium Chloride 180 ML IVC SCH (17:32)
[2021-01-09] MEDS: Artificial Tears SOLN 15 ML BOTTLE BOTH EYES SCH ×3 (00:10→07:40)
[2021-01-09] MEDS: Ipratropium/Albuterol Neb 3 ML IH SCH ×4 (00:16→11:11)
[2021-01-09] MEDS: FentaNYL (PF) 1,000 MCG/100 ML IV.SOLN IVC SCH ×2 (01:45→16:09)
[2021-01-09] MEDS: methylPREDNISolone 125 MG/2 ML VIAL IVP SCH ×2 (02:11→07:40)
[2021-01-09] MEDS: Cefepime HCl 2,000 MG in Water for inj. (sterile) 10 ML IVP SCH ×2 (02:11→10:26)
[2021-01-09] MEDS: PrismaSATE BGK 4/2.5 5,000 ML CRRT SCH ×4 (02:57→08:01)
[2021-01-09 03:54] LABS: Hematocrit 28.7 % (35.3-44.9); Hemoglobin 8.5 g/dL (11.5-15.4); Mean Corpuscular HGB Conc 29.6 g/dL (31.6-35.5); Mean Corpuscular Hemoglobin 26.3 pg (28.0-33.3); Mean Corpuscular Volume 88.9 fL (83.0-100.0); Mean Platelet Volume 11.5 fL (9.4-12.4); Red Blood Count 3.23 M/mcL (3.82-4.97)
[2021-01-09 03:56] LABS: Immature Platelets 3.1 % (1.1-6.1); Red Cell Distribution Width 25.4 % (11.5-14.5); White Blood Count 3.8 K/mcL (4.3-11.1)
[2021-01-09] MEDS: MetroNIDAZOLE 500 MG/100 ML 500 MG/100 ML BAG IVPB SCH (04:12)
[2021-01-09 04:14] LABS: Magnesium 2.8 mg/dL (1.6-2.6); Potassium 4.1 mEq/L (3.5-5.1)
[2021-01-09 04:48] LABS: ABG Base Excess -6 mEq/L (-2 to 3); ABG HCO3 17 mEq/L (21-27); ABG Oxygen Saturation 98 % (95-98); ABG PCO2 25 mmHg (35-45); ABG PH 7.43 pH Units (7.32-7.45); ABG PO2 96 mmHg (85-104); ABG TCO2 18 mEq/L (20-26); Blood Gas Modality ASSIST CONTROL; Blood Gas VT 400 cc
[2021-01-09] MEDS: *HR* Heparin 5,000 UNIT/ML VIAL SQ SCH (05:57)
[2021-01-09] MEDS: Vancomycin Oral Soln 125 MG/2.5 ML UDC PO SCH (07:40)
[2021-01-09] MEDS: Chlorhexidine Rinse 15 ML MOUTHWASH MM SCH (07:40)
[2021-01-09] MEDS: Pantoprazole 40 MG VIAL IVP SCH (07:40)
[2021-01-09 11:21] LABS: Influenza A PCR Body Fluid NOT DETECTED; Influenza B PCR Body Fluid NOT DETECTED; RVP Body Fluid Source BAL
[2021-01-09 11:21] LABS: Influenza A PCR Body Fluid NOT DETECTED; Influenza B PCR Body Fluid NOT DETECTED; RVP Body Fluid Source BAL
[2021-01-09 12:07] LABS: Hemoglobin 8.2 g/dL (11.5-15.4)
[2021-01-09 12:09] LABS: Hematocrit 27.3 % (35.3-44.9); Immature Platelets 3.8 % (1.1-6.1); Mean Corpuscular Hemoglobin 26.6 pg (28.0-33.3); Mean Corpuscular Volume 88.6 fL (83.0-100.0); Mean Platelet Volume 10.8 fL (9.4-12.4); Platelet Count 70 K/mcL (140-400); Red Blood Count 3.08 M/mcL (3.82-4.97); Red Cell Distribution Width 25.5 % (11.5-14.5); White Blood Count 2.4 K/mcL (4.3-11.1)
[2021-01-09 12:49] LABS: Lymphocytes # 0.1 K/mcL (0.6-4.6); Neutrophils # 2.3 K/mcL (1.6-8.9); Toxic Granulation Present (Not Present)
[2021-01-09 12:50] LABS: Anisocytosis 3+ (Not Present); Platelet Estimate Decreased (Normal); Polychromasia 1+ (Not Present)
[2021-01-09] MEDS ORDERED: Atropine 1% Opth Drops 100 DROP/5 ML BOTTLE SL PRN (14:12)
[2021-01-09] MEDS ORDERED: Haloperidol Lactate 5 MG/ML VIAL IVP PRN (14:13)
[2021-01-09 14:37] LABS: RSV PCR Body Fluid NOT DETECTED
[2021-01-09 14:37] LABS: RSV PCR Body Fluid NOT DETECTED
[2021-01-09] MEDS: *HR* LORazepam 2 MG/ML VIAL IVP PRN ×2 (15:47→18:46)
[2021-01-09] MEDS: *HR* FentaNYL (PF) 100 MCG/2 ML VIAL IVP PRN (22:57)
[2021-01-09] MEDS ORDERED: Cefepime HCl 1,000 MG in Water for inj. (sterile) 10 ML IVP SCH (23:00)
[2021-01-10] MEDS: *HR* LORazepam 2 MG/ML VIAL IVP PRN (00:23)
[2021-01-10] MEDS: *HR* FentaNYL (PF) 100 MCG/2 ML VIAL IVP PRN ×2 (00:23→03:07)
[2021-01-10 07:00] VITALS: BP 67/38; PULSE 109; TEMP 98.1; O2SAT 75
== END 2021-01-10 10:30 | disposition expired | DRG 871 ==
LOC: 2ANU 19:13 → EMEROOARM 19:13 → 2ANU 01-06 00:49 → ICNU 01-06 09:08 → SUATTDRO 01-06 14:08 → 2ANU 01-09 22:45
PROVIDERS: ADMIT Family Medicine; ATTEND Family Medicine